=== PATIENT | male | born 1970 | race Caucasian/White ===

== ENCOUNTER 2017-09-15 14:51 | Inpatient (IN) | payer OTHER ==
[~2017-09-15] VITALS: Ht 177.8 cm; Wt 86.8 kg
--- NOTE | ~2017-09-15 | HEMODYNAMI ---
PATIENT:GABRIEL MAYO MEDICAL RECORD: [id number] : 68 LOCATION:[address] ADMISSION DATE: 09/15/17 Generatedon:09/19/20178:00 Patient name: GABRIEL MAYO Patient #: [id number] SSN: DO B: 1970 Date of study: 09/19/2017 Page: Of Hemodynamic Procedure Report Patient Data Patient Demographics Procedure consent was obtained First Name: GABRIEL Gender: Male Last Name: MARIA ESTHER : 1970 Patient #: [id number] Age: 46 year(s) Race: Unknown Additional ID: [id number] Contact details Address: [address] [place] [address] State: [place] City: [place] Zip code: [address] Past Medical History Allergies: No known allergies Admission Admission Data Admission Date: 09/15/2017 Admission Time: 15:01 Room #: [facility] Procedure Procedure Types Cath Procedure Diagnostic Procedure LHC LHC w/Coronaries Miscellaneous Procedures Moderate Sedation up to 15 minutes Procedure Description Procedure Date Procedure Date: 09/19/2017 Procedure Start Time: 7:48 Procedure End Time: 7:59 Procedure Staff Name Function Shahid Dominique MD Performing Physician Gayle Boyer RT Monitor Jesus Alberto Castle RT Scrub Benton Grant RN Nurse Procedure Data Cath Procedure Fluoroscopy Diagnostic fluoroscopy Total fluoroscopy Time: 0.8 time: 0.8 min min Diagnostic fluoroscopy Total fluoroscopy dose: 547 dose: 547 mGy mGy Contrast Material Contrast Material Type Amount (ml) Isovue 300 84 Entry Location Entry Primary Successful Side Size Upsize Upsize Entry Closure Succes sful Closure Location (Fr) 1 (Fr) 2 (Fr) Remarks Device Remarks Femoral Right 5 Fr Exoseal artery Estimated blood loss: 5 ml Diagnostic catheters Device Type Used For End Catheter Placement Cordis 5Fr Pigtail LV Angiography Catheter (MP) Cordis 5Fr JL 4.0 Left Coronary Catheter (MP) Angiography Cordis 5Fr 3DRC Catheter Right Coronary (MP) Angiography Procedure Complications No complications Procedure Medications Medication Administration Route Dosage Oxygen NC 2 l/min Heparin Flush Bag added to field 2 bags (1000units/500ml NS) 0.9% NaCl I.V. 100 ml/hr Fentanyl I.V. 50 mcg Versed I.V. 1 mg Fentanyl I.V. 50 mcg Versed I.V. 1 mg Hemodynamics Rest Heart Rate: 94 (bpm) Pressure Samples Time Site Value (mmHg) Purpose Heart Use Rate(bpm) 7:50 LV 116/4,19 Snapshot 94 Gradients Valve Time Site Site Mean SEP/DFP Peak To Heart Use 1 2 (mmHg) (sec/min) Peak Rate (mmHg) (bpm) Aortic 7:51 LV AO 93 Snapshots Pre Cath Intra NCS Post Cath Vital Signs Time Heart Resp SPO2 etCO2 NIBP Rhythm Pain Sedation Rate (ipm) (%) (mmHg) (mmHg) Status Level (bpm) 7:37:01 90 19 95 0 118/72(86) NSR 0 (11) 10(A) , No pain 7:41:44 93 20 93 0 115/72(92) NSR 0 (11) 10(A) , No pain 7:46:29 93 20 96 35.2 119/72(90) NSR 0 (11) 10(A) , No pain 7:51:16 95 22 95 27.7 116/63(91) NSR 0 (11) 9(A) , No pain 7:56:01 95 18 95 37.4 115/71(84) NSR 0 (11) 9(A) , No pain 7:57:18 95 22 94 37.4 122/74(86) NSR 0 (11) 9(A) , No pain Medications Time Medication Route Dose Verified Delivered Reason Notes Effect iveness by by 7:45:55 Oxygen NC 2 Shahid Bhardwaj Per l/min Trip Grant RN physician 7:46:05 Heparin Flush added 2 Shahid Bhardwaj used for Bag to bags Trip Grant laborer [employer] (1000units/500ml field NS) 7:46:15 0.9% NaCl I.V. 100 Shahid Bhardwaj Per ml/hr Trip Grant RN physician 7:48:36 Fentanyl I.V. 50 Shahid Bhardwaj for mcg Trip Grant RN sedation 7:48:43 Versed I.V. 1 mg Shahid Bhardwaj for Trip Grant RN sedation 7:52:11 Fentanyl I.V. 50 Shahid [place]hardwaj [place] [facility] [place] sedation 7:52:16 Versed I.V. 1 mg Shahid Bhardwaj for Trip Grant RN sedation Procedure Log Time Note 7:12:56 Jesus Alberto Castle RT(R) sent for patient. Start room use. 7:27:57 Time tracking: Call back 7:28:07 Plan of Care:Hemodynamics will remain stable., Cardiac rhythm will remain stable., Comfort level will be maintained., Respiratory function will remain adequate., Patient/ family verbilizes understanding of procedure., Procedure tolerated without complication., Recovers from procedure without complications.. 7:31:45 Patient received from PCU to CCL 1 Alert and oriented. Tansferred to table in Supine position. 7:31:47 Warm blankets applied, and shaquille hugger turned on for patient comfort. 7:31:47 Correct patient and procedure confirmed by team. 7:31:48 Signed procedure consent form obtained from patient. 7:31:50 ECG and BP/O2 sat monitors applied to patient. 7:31:52 Full Disclosure recording started 7:36:07 Vital chart was started 7:40:39 Baseline sample Acquired. 7:40:42 Rhythm: sinus rhythm 7:41:30 H&P Date Dictated: 09/15/2017 Within 30 days and on chart.. 7:41:32 Pre-procedure instructions explained to patient. 7:41:32 Pre-op teaching completed and patient verbalized understanding. 7:41:35 Family in patients room. 7:41:37 Patient NPO since Midnight. 7:41:46 Patient allergic to No known allergies 7:41:49 Is the patient allergic to Iodine/contrast media? No. 7:41:51 Is patient on blood thinner?No 7:41:53 Patient diabetic? No. 7:41:57 Previous problem with sedation/anesthesia? No ? 7:41:57 Snore? No 7:41:59 Sleep apnea? No 7:42:00 Deviated septum? No 7:42:01 Opens mouth fully? Yes 7:42:02 Sticks out tongue? Yes 7:42:03 Airway obstruction? No ? 7:42:05 Dentures? No ? 7:42:07 Pre procedure: right dorsailis pedis pulse 2+ Normal; easily identifiable; not easily obliterated 7:42:10 Patient pain scale 0/10 ?. 7:43:07 IV patent on arrival in right forearm with 0.9% NaCl at [facility]. 7:43:10 Lab results completed and on chart. 7:43:13 Right groin area was prepped with chlora-prep and draped in sterile fashion 7:43:14 Alarms reviewed by R. N. 7:43:14 Sharps counted by scrub and verified by R.N. 7:43:17 Use device set Femoral Dx 7:43:18 Acist Syringe opened to sterile field. 7:43:18 Bag Decanter opened to sterile field. 7:43:18 Medline Cath Pack opened to sterile field. 7:43:19 Terumo 5Fr [place] Sheath opened to sterile field. 7:43:20 St Jamie 260cm J .035 wire opened to sterile field. 7:43:20 Acist Hand Control opened to sterile field. 7:43:21 Acist Manifold opened to sterile field. 7:43:21 Diagnostic Infinity 5Fr Multipack catheter opened to sterile field. 7:43:22 Tegaderm 4 x 4 opened to sterile field. 7:44:39 Physician paged 7:45:55 Oxygen 2 l/min NC was administered by Benton Grant RN; Per physician; 7:46:05 Heparin Flush Bag (1000units/500ml NS) 2 bags added to field was administered by Benton Grant RN; used for procedure; 7:46:15 0.9% NaCl 100 ml/hr I.V. was administered by Benton Grant RN; Per physician; 7:47:40 Final Timeout: patient, procedure, and site verified with staff and physician. All members of the team are in agreement. 7:47:41 Right groin site verified by team. 7:47:45 Physical assessment completed. ASA score P 2 - A patient with mild systemic disease as per Shahid Dominique MD. 7:47:49 Sedation plan: IV Moderate Sedation Medication:Versed, Fentanyl 7:47:54 Procedure started. 7:48:36 Fentanyl 50 mcg I.V. was administered by Benton Grant RN; for sedation; 7:48:43 Versed 1 mg I.V. was administered by Benton Grant RN; for sedation; 7:48:47 Local anesthetic to right femoral artery with Lidocaine 2% by Shahid Dominique MD.INITIAL ACCESS ONLY 7:48:56 Zero performed for pressure channel P1 7:49:15 A 5 Fr sheath was inserted into the Right Femoral artery 7:50:17 A Cordis 5Fr Pigtail Catheter (MP) was advanced over the wire and used for LV Angiography. 7:50:53 LV gram done using REILLY 7:51:34 Injector settings: Ml/sec: 10, Volume: 20, 7:51:37 LV hemodynamics recorded. 7:51:41 Catheter removed. 7:52:11 Fentanyl 50 mcg I.V. was administered by Benton Grant RN; for sedation; 7:52:16 Versed 1 mg I.V. was administered by Benton Grant RN; for sedation; 7:52:55 A Cordis 5Fr JL 4.0 Catheter (MP) was advanced over the wire and used for Left Coronary Angiography. 7:52:56 Catheter removed. 7:53:20 A Cordis 5Fr 3DRC Catheter (MP) was advanced over the wire and used for Right Coronary Angiography. 7:53:52 Catheter removed. 7:54:03 Cordis 5Fr Exoseal opened to sterile field. 7:55:36 Procedure ended.(Physican Out) 7:57:35 Sheath removed intact; hemostasis achieved with Exoseal to the Right Femoral artery. 7:57:52 Fluoroscopy time 00.80 minutes. 7:57:56 Fluoroscopy dose: 547 mGy 7:57:56 Flurop Dose total: 547 7:58:03 Contrast amount:Isovue 300 84ml. 7:58:04 Sharps counted by scrub and verified by R.N. 7:58:07 Insertion/operative site no bleeding no hematoma. 7:58:14 Post-op/insertion site Right Femoral artery dressed using a 4 x 4 and Tegaderm. 7:58:18 Post right femoral artery:stable, clean and dry 7:58:21 Post Procedure Pulses reassessed and unchanged 7:58:34 Post-procedure physical assessment completed. ASA score P 2 - A patient with mild systemic disease as per Shahid Dominique MD. 7:58:40 Post procedure rhythm: unchanged. 7:58:43 Estimated blood loss: 5 ml 7:58:46 Post procedure instruction explained to patient.Patient verbalizes understanding. 7:58:46 Patient needs reinforcement of post procedure teaching. 7:58:58 Procedure type changed to Cath procedure, Diagnostic procedure, LHC, LHC w/Coronaries, Miscellaneous Procedures, Moderate Sedation up to 15 minutes 7:59:03 Procedure Complication : No complications 7:59:06 See physician's report for complete and final results. 7:59:19 Procedure and supply charges have been captured, reviewed, submitted and are correct. 7:59:28 Vital chart was stopped 7:59:31 Report given to PCU. 7:59:35 Patient transfered to PCU with Bed. 7:59:45 Procedure ended. 7:59:45 Full Disclosure recording stopped 7:59:50 End room use (Document Last) Device Usage Item Name Manufacture Quantity Catalog Hospital Part Current Minimal Lo t# / Number Charge Number Stock Stock Serial# Code Acist Acist 1 [id number] [id number] [id number] 20 Syringe Medical Systems Inc Bag Microtek 1 2002S [id number] 86872 441929 5 Decanter Medical Inc. Medline Cardinal 1 [id number] 336829 95850 922780 5 Cath Pack Health Terumo 5Fr Terumo 1 [id number] 141891 087986 875684 [address] Jamie 1 022142 845771 137614 916072 30 260cm J .035 wire Acist Hand Acist 1 55653 505389 933144 992446 5 Control Medical Systems Inc Acist Acist 1 24731 706129 367058 256746 5 Manifold Medical Systems Inc Diagnostic Cardinal 1 [id number] 253630 70026 230075 30 Infinity Health 5Fr Multipack catheter Tegaderm 4 3M 1 1626W 889887 719842 795696 5 x 4 Cordis 5Fr Cardinal 1 [id number] 5 Pigtail Health Catheter (MP) Cordis 5Fr Cardinal 1 [id number] 5 JL 4.0 Health Catheter (MP) Cordis 5Fr Cardinal 1 290969 5 3DRC Health Catheter (MP) Cordis 5Fr Cardinal 1 EX500 001235 773529 542283 10 Vocalytics Signature Audit [place] Stage Time Signature Unsigned Intra-Procedure 09/19/2017 Gayle 8:00:00 AM Counts RT(R) Signatures Monitor : Gayle Signature : Counts RT Date : Time : [address] [place] [address]
--- NOTE | ~2017-09-15 | HEMODYNAMI ---
PATIENT:GABRIEL MAYO MEDICAL RECORD: [id number] : 68 LOCATION:[address] ADMISSION DATE: 09/15/17 Generatedon:09/22/201711:27 Patient name: GABRIEL MAYO Patient #: [id number] SSN: DO B: 1970 Date of study: 09/22/2017 Page: Of Hemodynamic Procedure Report Patient Data Patient Demographics Procedure consent was obtained First Name: GABRIEL Gender: Male Last Name: MARIA ESTHER : 1970 Patient #: [id number] Age: 46 year(s) Race: Unknown Additional ID: [id number] Contact details Address: [address] [place] [address] State: [place] City: [place] Zip code: [address] Past Medical History Allergies: No known allergies Admission Admission Data Admission Date: 09/15/2017 Admission Time: 15:01 Room #: [facility] Lab Results Lab Result Date: 09/22/2017 Lab Result Time: 0:00 Biochemistry Name Units Result Min Max BUN mg/dl 19 --(----)*- 7 18 Creatinine mg/dl 1.1 --(--*-)-- 0.6 1.3 CBC Name Units Result Min Max Hemoglobin g/dl 16 --(--*-)-- 13.5 17.5 Procedure Procedure Types Cath Procedure Diagnostic Procedure ALEX Procedure Description Procedure Date Procedure Date: 09/22/2017 Procedure Start Time: 11:10 Procedure End Time: 11:21 Procedure Staff Name Function Shahid Dominique MD Performing Physician Fernanda Cosme RT Monitor Serenity Alicea RT Scrub Louis Lord RN Nurse Blade Donaldson Button Riveter Alberto Reece MD Additional personnel Procedure Data Cath Procedure Fluoroscopy Diagnostic fluoroscopy Total fluoroscopy Time: 0 time: 0 min min Diagnostic fluoroscopy Total fluoroscopy dose: 0 dose: 0 mGy mGy Contrast Material Contrast Material Type Amount (ml) Isovue 300 0 Estimated blood loss: 0 ml Procedure Complications No complications Procedure Medications Medication Administration Route Dosage Oxygen NC 2 l/min Hurricaine Chester P.O. 1 Sprays Refer to Anesthesia Notes for Sedation Medications Hemodynamics Rest HGB: 16 (g/dl) Heart Rate: 85 (bpm) Snapshots Pre Cath Intra NCS Post Cath Vital Signs Time Heart Resp SPO2 NIBP Rhythm Pain Sedation Rate (ipm) (%) (mmHg) Status Level (bpm) 10:45:12 87 27 98 117/73(98) NSR 0 (11) 10(A) , No pain 10:49:26 84 29 97 124/75(92) NSR 0 (11) 10(A) , No pain 10:53:40 87 24 96 121/67(85) NSR 0 (11) 10(A) , No pain 10:57:50 86 34 98 119/70(85) NSR 0 (11) 10(A) , No pain 11:01:58 84 19 99 112/71(91) NSR 0 (11) 10(A) , No pain 11:06:06 85 22 100 114/69(84) NSR 0 (11) 10(A) , No pain 11:10:20 87 23 100 98/68(75) NSR 0 (11) 10(A) , No pain 11:14:23 95 20 98 117/75(87) NSR 0 (11) 9(A) , No pain 11:18:37 94 28 97 104/62(87) NSR 0 (11) 10(A) , No pain Medications Time Medication Route Dose Verified Delivered Reason Notes Effective ness by by 11:00:26 Oxygen NC 2 Shahid Myers used for l/min Trip Lord RN procedure 11:00:38 Hurricaine P.O. 1 Shahid Myers used for Chester Sprays Trip Lord RN procedure 11:00:43 Refer to Shahid Myers Anesthesia Trip Lord RN Notes for Sedation Medications Procedure Log Time Note 10:30:42 Fernanda SANDOVAL(R) sent for patient. Start room use. 10:43:47 Time tracking: Regular hours 10:43:51 Plan of Care:Hemodynamics will remain stable., Cardiac rhythm will remain stable., Comfort level will be maintained., Respiratory function will remain adequate., Patient/ family verbilizes understanding of procedure., Procedure tolerated without complication., Recovers from procedure without complications.. 10:44:01 Patient received from Med II to CCL 2 Alert and oriented. Tansferred to table in Supine position. 10:44:02 Warm blankets applied, and shaquille hugger turned on for patient comfort. 10:44:02 Correct patient and procedure confirmed by team. 10:44:03 Signed procedure consent form obtained from patient. 10:44:05 ECG and BP/O2 sat monitors applied to patient. 10:44:06 Vital chart was started 10:44:07 Baseline sample Acquired. 10:44:10 Rhythm: sinus rhythm 10:44:20 Full Disclosure recording started 10:44:27 H&P Date Dictated: 09/22/2017 New H&P dictated by physician.. 10:44:28 Pre-procedure instructions explained to patient. 10:44:29 Pre-op teaching completed and patient verbalized understanding. 10:44:31 Family in waiting room. 10:44:33 Patient NPO since Midnight. 10:45:56 Is the patient allergic to Iodine/contrast media? No. 10:45:57 Was the patient premedicated? No 10:51:20 Is patient on blood thinner?No 10:51:21 Patient diabetic? No. 10:51:26 Previous problem with sedation/anesthesia? No ? 10:51:27 Snore? Yes 10:51:28 Sleep apnea? No 10:51:29 Deviated septum? No 10:51:30 Opens mouth fully? Yes 10:51:31 Sticks out tongue? Yes 10:51:33 Airway obstruction? No ? 10:51:36 Dentures? No ? 10:51:42 Pre procedure: right dorsailis pedis pulse 2+ Normal; easily identifiable; not easily obliterated 10:51:45 Pre procedure: left dorsailis pedis pulse 2+ Normal; easily identifiable; not easily obliterated 10:51:49 Patient pain scale 0/10 ?. 10:52:01 IV patent on arrival in right hand with 0.9% NaCl at [facility]. 10:54:08 Lab Result : BUN 19 mg/dl 10:54:08 Lab Result : Creatinine 1.1 mg/dl 10:54:08 Lab Result : Hemoglobin 16 g/dl 10:55:37 Lab results completed and on chart. 10:55:41 Sharps counted by scrub and verified by R.N. 10:55:43 Physician paged 10:59:09 Blade Donaldson Power Cleaner Operator present for ALEX. 11:00:26 Oxygen 2 l/min NC was administered by Louis Lord RN; used for procedure; 11:00:38 Hurricaine Chester 1 Sprays P.O. was administered by Louis Lord RN; used for procedure; 11:00:43 Refer to Anesthesia Notes for Sedation Medications was administered by Louis Lord RN; ; 11:06:30 Physician arrived :: --------ALL STOP TIME OUT------ :31 Final Timeout: patient, procedure, and site verified with staff and physician. All members of the team are in agreement. 11:06:36 Physical assessment completed. ASA score P 2 - A patient with mild systemic disease as per Shahid Dominique MD. 11:06:39 Sedation plan: TIVA Medication:Propofol 11:06:44 Alberto Reece MD present and monitoring patient for TIVA. 11:10:27 ALEX started. 11:10:35 Procedure started. 11:19:26 ALEX completed. 11:19:43 Procedure ended.(Physican Out) 11:19:47 Fluoroscopy time 00.00 minutes. 11:19:49 Fluoroscopy dose: 0 mGy 11:19:49 Flurop Dose total: 0 11:19:56 Contrast amount:Isovue 300 0ml. 11:19:58 Sharps counted by scrub and verified by R.N. 11:19:59 Insertion/operative site no bleeding no hematoma. 11:20:11 Post Procedure Pulses reassessed and unchanged 11:20:20 Post procedure rhythm: unchanged. 11:20:28 Estimated blood loss: 0 ml 11:20:29 Post procedure instruction explained to patient.Patient verbalizes understanding. 11:20:30 Patient needs reinforcement of post procedure teaching. 11:20:36 Procedure and supply charges have been captured, reviewed, submitted and are correct. 11:20:40 Procedure Complication : No complications 11:20:44 Vital chart was stopped 11:20:45 See physician's report for complete and final results. 11:20:53 Report given to [facility] II. 11:20:56 Patient transfered to Med II with Stretcher. 11:21:09 Procedure ended. 11:21:09 Full Disclosure recording stopped 11:21:14 End room use (Document Last) Signature Audit [place] Stage Time Signature Unsigned Intra-Procedure 09/22/2017 Serenity Alicea 11:27:04 AM RT(R) Signatures Monitor : Fernanda Cosme Signature : RT Date : Time : [place] [id number] [facility] [place] [address]
[2017-09-15] MEDS ORDERED: MOBIC7.5 MG PO (15:27)
[2017-09-15 15:28] VITALS: BP 128/73; BMI 28.0
[2017-09-15] MEDS ORDERED: TESTOSTERON200 MG/ML IM (15:28)
[2017-09-15 15:39] LABS: BASOPHILS 0.1 % (0-2); EOSINOPHILS 0.4 % (0-7); HEMATOCRIT 49.3 % (42.0-54.0); IMMATURE GRANULOCYTES 0.2 % (0-5); LYMPHOCYTES 10.7 % (15-50); MCH 31.7 pg (26.0-34.0); MCHC 34.5 g/dL (31.0-37.0); MCV 91.8 fL (80.0-100.0); MEAN PLATELET VOLUME 10.3 fL (7.4-10.4); MONOCYTES 10.7 % (2-11); NEUTROPHILS 77.9 % (40-80); PLATELET COUNT 223 10x3/uL (130-400); RBC 5.37 10x6/uL (4.20-6.10); RDW 13.1 % (11.5-14.5); WBC 11.2 10x3/uL (4.8-10.8)
[2017-09-15 15:54] LABS: CALC OSMOLALITY 287 mosm/kg (275-300); CALCIUM 8.4 mg/dL (8.5-10.1); CARBON DIOXIDE 25.4 mmol/L (21.0-32.0); CHLORIDE - SERUM 108 mmol/L (98-107); GLUCOSE 86 mg/dL (74-106); POTASSIUM - SERUM 3.6 mmol/L (3.5-5.1); SODIUM 144 mmol/L (136-145); UREA NITROGEN 19 mg/dL (7-18); eGFR NON AFRICAN AMERICAN 85 mL/min (90-120)
--- NOTE | 2017-09-15 16:00 | NUR ---
PT ARRIVED TO UNIT WITH AT BEDSIDE. PT A&O AMBULATORY PT DIRECT ADMIT FROM LEDGER CLERK APPT WITH ENDOCARDITIS. 20 GUAGE PIV INSERTED X1 STICK TO L.FA, MADELINEG CDI AND SWAB CAPS IN USE. WILL BEGIN ADMISSION WORK-UP AND CONTINUE WITH ORDERS.
--- NOTE | 2017-09-15 16:43 | NUR ---
ALL ANBX ON HOLD UNTIL AFTER ALL RANDOM BLOOD CULTURES ARE COMPLETED. AT BEDSIDE NOW ASSESSING PT AND DISCUSSING DISEASE PROCESS. FAMILY AT BEDSIDE. NO CURRENT NEEDS. WILL CPOC.
--- NOTE | 2017-09-15 18:21 | NUR ---
URINE SPECIMEN COLLECTED AND WILL BE SENT TO LAB.
--- NOTE | 2017-09-15 20:25 | NUR ---
PT AWAKE, ALERT, ORIENTED, ASKING FOR IBUPROFEN R/T A HEADACHE, NO OTHER NEEDS. IS AT BEDSIDE. CONTINUE TO MONITOR CLOSELY. BED LOW, CALL LIGHT IN REACH, SIDE RAILS X 2, HOB 35-40 DEGREES. PT STATES HE DOES EXPERIENCE INCREASED SOB WHEN LYING DOWN.
[2017-09-15 20:55] VITALS: BP 123/78
--- NOTE | 2017-09-16 00:27 | NUR ---
PT ORIGINALLY DID NOT WANT THE PRN AMBIEN SO I RETURNED THE ORIGINAL DOSE. AFTER A COUPLE OF HOURS, PT WAS COUGHING FREQUENTLY AND UNABLE TO SLEEP, SO HE DID WANT THE AMBIEN. WILL CONTINUE TO MONITOR CLOSELY.
[2017-09-16 00:45] VITALS: BP 115/74
[2017-09-16 05:39] LABS: BASOPHILS 0.1 % (0-2); EOSINOPHILS 1.1 % (0-7); HEMATOCRIT 50.5 % (42.0-54.0); IMMATURE GRANULOCYTES 0.3 % (0-5); LYMPHOCYTES 16.9 % (15-50); MCH 31.1 pg (26.0-34.0); MCHC 33.7 g/dL (31.0-37.0); MCV 92.3 fL (80.0-100.0); MEAN PLATELET VOLUME 11.2 fL (7.4-10.4); NEUTROPHILS 71.6 % (40-80); PLATELET COUNT 221 10x3/uL (130-400); RBC 5.47 10x6/uL (4.20-6.10); RDW 13.1 % (11.5-14.5)
[2017-09-16 05:44] LABS: WBC 7.9 10x3/uL (4.8-10.8)
[2017-09-16 05:50] LABS: CALC OSMOLALITY 285 mosm/kg (275-300); CALCIUM 8.7 mg/dL (8.5-10.1); CARBON DIOXIDE 28.2 mmol/L (21.0-32.0); CHLORIDE - SERUM 106 mmol/L (98-107); CREATININE - SERUM 1.1 mg/dL (0.6-1.3); GLUCOSE 104 mg/dL (74-106); POTASSIUM - SERUM 3.7 mmol/L (3.5-5.1); SODIUM 142 mmol/L (136-145); UREA NITROGEN 21 mg/dL (7-18); eGFR NON AFRICAN AMERICAN 76 mL/min (90-120)
--- NOTE | 2017-09-16 06:06 | NUR ---
PT AWAKE, ALERT, ORIENTED, LYING IN BED LOOKING AT TELEVISION. PT DENIES ANY NEEDS. PT HAS BEEN COUGHING FREQUENTLY THIS SHIFT. I HAVE ENCOURAGED PT TO TALK TO PHYSICIAN ABOUT GETTING SOMETHING TO HELP HIS COUGH SO HE CAN REST. CONTINUE TO MONITOR PT CLOSELY. BED LOW, CALL LIGHT IN REACH, SIDE RAILS X 2, HOB 35 DEGREES.
[2017-09-16 06:12] VITALS: BP 110/66
[2017-09-16 07:47] VITALS: BP 126/79
[2017-09-16 11:48] VITALS: BP 129/82
--- NOTE | 2017-09-16 15:45 | NUR ---
RESTING IN BED. ALERT AND ORIENTED X4. FAMILY AT BEDSIDE. DENIES ANY NEEDS. NO CHANGE. SINUS RTHYM 90bpm ON TELEMETRY. CONTINUE PLAN OF CARE. BED LOCKED AND LOW. CALL LIGHT IN REACH. NO SIDERAILS UP PER PATIENT REQUEST.
[2017-09-16 16:09] VITALS: BP 99/53
--- NOTE | 2017-09-16 19:46 | NUR ---
RESUMED CARE OF PT, LYING IN BED RESPIRATIONS EVEN AND UNLABORED ON ROOM AIR. LEFT FOREARM INFUSING VANCOMYCIN @ 100. 86 SR ON TELEMETRY. CALL LIGHT INR EACH. SEE NURSE ASSESSMENT. WILL CONTINUE TO MONITOR.
--- NOTE | 2017-09-16 20:36 | NUR ---
NIGHT MEDS PASSED, SPUTUM CUP AT BEDSIDE AND INSTRUCTIONS FOR COLLECTION GIVEN.
[2017-09-16 21:12] VITALS: BP 103/64
--- NOTE | 2017-09-16 23:46 | NUR ---
SPUTUM CULTURE COLLECTED, NO NEEDS AT THIS TIME. WILL CONTINUE TO MONITOR. CALL LIGHT IN REACH.
[2017-09-17 00:52] VITALS: BP 106/61
--- NOTE | 2017-09-17 05:24 | NUR ---
REPEAT PHOTOCOMPOSING MACHINE OPERATOR AT BEDSIDE TO OBTAIN VITALS, CALL LIGHT IN REACH. WILL CONTINUE WITH PLAN OF CARE.
[2017-09-17 05:53] VITALS: BP 114/72
[2017-09-17 06:41] LABS: ALBUMIN 2.9 g/dL (3.4-5.0); BILIRUBIN - DIRECT 0.05 mg/dL (0.00-0.30); BILIRUBIN - INDIRECT 0.35 mg/dL (0.00-1.00); BILIRUBIN - TOTAL 0.4 mg/dL (0.2-1.3)
--- NOTE | 2017-09-17 07:30 | NUR ---
RECEIVED PT IN BED AAOX4 RESP UNLABORED DENIES ANY NEEDS OR DISCOMFORT NAD NOTED
[2017-09-17 08:00] VITALS: BP 119/63
--- NOTE | 2017-09-17 10:32 | NUR ---
RESTING QUIETLY RECLINED IN CHAIR NAD NOTED
[2017-09-17 13:20] VITALS: BP 116/72
--- NOTE | 2017-09-17 15:34 | NUR ---
VISITING WITH FRIENDS MAMIE NOTED
[2017-09-17 16:47] VITALS: BP 104/50
--- NOTE | 2017-09-17 20:09 | NUR ---
PT AWAKE, ALERT, ORIENTED, DENIES ANY NEEDS AT THIS TIME. FAMILY AT BEDSIDE. CONTINUE TO MONITOR CLOSELY.
[2017-09-17 20:35] VITALS: BP 118/67
[2017-09-18 00:50] VITALS: BP 106/60
[2017-09-18 05:12] VITALS: BP 104/62
[2017-09-18 11:48] VITALS: BP 112/65
--- NOTE | 2017-09-18 15:53 | NUR ---
Vancomycin trough was 8.2. Increased to 1gm q8h & ordered trough 11-26 at 0730.
[2017-09-18 16:15] VITALS: BP 107/63
--- NOTE | 2017-09-18 19:26 | NUR ---
PT AWAKE, ALERT, ORIENTED, WALKING AROUND UNIT, DID BECOME WINDED AND HAD TO SIT DOWN. NO NEEDS AT THIS TIME. WILL CONTINUE TO MONITOR CLOSELY. BED LOW, CALL LIGHT IN REACH. PT IS CURRENTLY SITTING UP IN CHAIR.
[2017-09-18 21:40] VITALS: BP 113/75
[2017-09-19] VITALS: BP 106/62
--- NOTE | 2017-09-19 00:57 | NUR ---
PT RESTING COMFORTABLY, STILL COUGHING, NO NEEDS. REMAINS AT BEDSIDE. CONTINUE TO MONITOR CLOSELY.
[2017-09-19 04:16] VITALS: BP 107/64
[2017-09-19 05:08] LABS: IMMUNOGLOBULIN E 102 IU/mL (0-100)
[2017-09-19 05:16] LABS: BASOPHILS 0.1 % (0-2); EOSINOPHILS 2.3 % (0-7); IMMATURE GRANULOCYTES 0.4 % (0-5); LYMPHOCYTES 20.5 % (15-50); MCH 30.8 pg (26.0-34.0); MCHC 33.3 g/dL (31.0-37.0); MCV 92.4 fL (80.0-100.0); MEAN PLATELET VOLUME 10.8 fL (7.4-10.4); MONOCYTES 7.9 % (2-11); NEUTROPHILS 68.8 % (40-80); PLATELET COUNT 196 10x3/uL (130-400); RBC 4.87 10x6/uL (4.20-6.10); RDW 13.1 % (11.5-14.5); WBC 7.8 10x3/uL (4.8-10.8)
[2017-09-19 05:50] LABS: CALC OSMOLALITY 283 mosm/kg (275-300); CALCIUM 8.5 mg/dL (8.5-10.1); CARBON DIOXIDE 26.3 mmol/L (21.0-32.0); CHLORIDE - SERUM 107 mmol/L (98-107); GLUCOSE 98 mg/dL (74-106); POTASSIUM - SERUM 4.2 mmol/L (3.5-5.1); SODIUM 141 mmol/L (136-145); UREA NITROGEN 22 mg/dL (7-18); eGFR NON AFRICAN AMERICAN 85 mL/min (90-120)
--- NOTE | 2017-09-19 05:55 | NUR ---
DR. RAYMUNDO CALLED TO PLACE PT NPO, STATES HE WILL HAVE A CARDIAC CATH THIS MORNING. WILL OBTAIN CONSENTS.
--- NOTE | 2017-09-19 06:16 | NUR ---
CONSENTS FOR CARDIAC CATH SIGNED AND IN CHART.
--- NOTE | 2017-09-19 07:25 | NUR ---
AM ROUNDS COMPLETED. INTRODUCED MYSELF TO PT PRIMARY RN FOR TODAYS SHIFT. PT A&O SITTING UP IN BEDSIDE CHAIR. NIGHTSHIFT NURSE PREPPING PT FOR PATROL DEPUTY SHERIFF. PT ABOUT TO LEAVE. NO CURRENT NEEDS WILL GIVE MEDICATIONS WHEN HE RETURNS.
--- NOTE | 2017-09-19 08:15 | NUR ---
PT BACK FROM [facility]. LYING FLAT IN BED NEW DRSG TO R.GROIN. DRSG CDI NO S/S OF BLEEDING OR HEMATOMA NOTED. PERIPHERAL PULSES INTACT. VSS AND BEING MONITERED [id number] PER POST PROCEDURE PROTOCOL. PT DENIES ANY CURRENT PAIN OR NEEDS AT THIS TIME. AND FAMILY AT BEDSIDE. WILL CTM.
[2017-09-19 08:35] VITALS: BP 117/69
--- NOTE | 2017-09-19 09:22 | NUR ---
PT STILL LYING FLAT AND R.GROIN DRSG CDI. NO S/S OF BLEEDING OR HEMATOMA NOTED. VSS AND STILL BEING MONITERED. PERIPHERAL PULSES INTACT. WILL CTM.
--- NOTE | 2017-09-19 10:11 | NUR ---
PTS 2 HOUR LAY COMPLETED. ASSISTED PT TO BR AND HE AMBULATED WITHOUT ANY DIFFICULTIES. VSS THROUGHOUT POST PROCEDURE RECORD. R.GROIN REMAINS CLEAN/DRY WITHOUT S/S OF HEMATOMA NOTED. PERIPHERAL PULSES INTACT. PT DENIES ANY CURRENT PAIN OR NEEDS. AT BEDSIDE. WILL CPOC.
[2017-09-19 12:12] VITALS: BP 100/50
--- NOTE | 2017-09-19 14:26 | NUR ---
CALLED XRAY TO INQUIRE ABOUT CHEST XRAY NOT DONE R/T PT BEING IN CATH THIS AM AND THEY STATE THEY WILL COME DO IT SHORTLY.
--- NOTE | 2017-09-19 15:21 | NUR ---
PROVIDED PT WITH INCENTIVE SPIROMETER AND TEACHING PROVIDED. PT DEMONSTRATED PROPER USE AND STATES HE WILL TRY AND DO IT SEVERAL TIMES EACH HOUR TO HELP IMPROVE LUNG FUNCTION. NO FURTHER NEEDS AT THIS TIME. WILL CPOC.
[2017-09-19 16:36] VITALS: BP 122/69
--- NOTE | 2017-09-19 17:07 | NUR ---
INITIATED PTS IVPB VANCOMYCIN INFUSING VIA L.FA PIV WITH DRSG CDI AND SWAB CAPS IN USE. PT SITTING UP IN BEDSIDE CHAIR RESTING WITH AT BEDSIDE. PT DENIES ANY CURRENT PAIN OR NEEDS AT THIS TIME. WILL CPOC.
--- NOTE | 2017-09-19 19:00 | NUR ---
RECEIVED REPORT AND ASSUMED PT CARE FROM DAY SHIFT NURSE @ THIS TIME.
--- NOTE | 2017-09-19 20:29 | NUR ---
PT SITTING UP IN BED, SPOUSE AT THE BEDSIDE. INITIAL ASSESSMENT COMPLETED, VSS, AFEBRILE. RESP EVEN UNLABORED. RT GROIN POST CATH SITE WITH MADELINEG, CDI. DENIES ANY C/O PAIN. PEDAL PULSES P/E +2. LEFT FOREARM WITH NS @ KVO, SIOTE IS PATENT AND APPEARS WNL. NO NEEDS VOICED. ON TELE, NSR, HR 93. CALL LIGHT WITHIN REACH. WILL CONT TO MONITOR.
[2017-09-19 21:15] VITALS: BP 136/60
--- NOTE | 2017-09-20 | NUR ---
PT RESTING WELL, NO CHANGES NOTED. ASSESSMENTS UNCHANGED. CALL LIGHT WITHIN REACH. WILL MONITOR.
[2017-09-20 00:50] VITALS: BP 100/46
[2017-09-20 05:16] VITALS: BP 110/60
--- NOTE | 2017-09-20 07:32 | NUR ---
AM ROUNDS COMPLETED. INTRODUCED MYSELF TO PT PRIMARY RN FOR TODAYS SHIFT. PT REMEMBERS ME FROM YESTERDAY. PT STATES THEY SLEPT ALRIGHT AND DENIES ANY CURRENT PAIN OR NEEDS. WILL CHECK CHART AND CPOC.
[2017-09-20 07:33] LABS: BASOPHILS 0.1 % (0-2); EOSINOPHILS 1.8 % (0-7); HEMATOCRIT 49.4 % (42.0-54.0); HEMOGLOBIN 16.7 g/dL (13.5-17.5); IMMATURE GRANULOCYTES 0.3 % (0-5); LYMPHOCYTES 17.1 % (15-50); MCH 31.2 pg (26.0-34.0); MCHC 33.8 g/dL (31.0-37.0); MCV 92.3 fL (80.0-100.0); MEAN PLATELET VOLUME 10.4 fL (7.4-10.4); MONOCYTES 9.5 % (2-11); NEUTROPHILS 71.2 % (40-80); PLATELET COUNT 208 10x3/uL (130-400); RBC 5.35 10x6/uL (4.20-6.10); RDW 13.2 % (11.5-14.5); WBC 7.4 10x3/uL (4.8-10.8)
[2017-09-20 07:46] LABS: CALC OSMOLALITY 283 mosm/kg (275-300); CALCIUM 8.4 mg/dL (8.5-10.1); CARBON DIOXIDE 28.7 mmol/L (21.0-32.0); CHLORIDE - SERUM 105 mmol/L (98-107); CREATININE - SERUM 1.1 mg/dL (0.6-1.3); GLUCOSE 95 mg/dL (74-106); POTASSIUM - SERUM 3.8 mmol/L (3.5-5.1); SODIUM 142 mmol/L (136-145); VANCOMYCIN - TROUGH 15.4 ug/mL (10.0-20.0); eGFR NON AFRICAN AMERICAN 76 mL/min (90-120)
[2017-09-20 07:52] LABS: UREA NITROGEN 15 mg/dL (7-18)
[2017-09-20 08:50] VITALS: BP 121/68
--- NOTE | 2017-09-20 10:20 | NUR ---
PTS VANCOMYCIN INFUSION COMPLETED. SL PTS L.FA PIV AND WRAPPED IT SO HE CAN TAKE A SHOWER. PT VOICED THANKS AND DENIES ANY FURTHER NEEDS AT THIS TIME. CL IN REACH. WILL CPOC.
--- NOTE | 2017-09-20 12:02 | NUR ---
AT BEDSIDE DISCUSSING YESTERDAYS CATH WITH PT AND . PT WILL BE NPO AFTER MIDNIGHT FOR ALEX TOMORROW AND HE VERBALIZED UNDERSTANDING. PT HAS AMBULATED 2 LAPS TODAY AROUND NURSES STATION AND IS FEELING GOOD OVERALL HE STATES. NO CURRENT NEEDS. WILL CPOC.
[2017-09-20 12:20] VITALS: BP 112/71
--- NOTE | 2017-09-20 15:21 | NUR ---
INITIATED PTS IVPB VANCOMYCIN INFUSING VIA L.FA PIV WITH DRSG CDI AND SWAB CAPS IN USE. PT REQUESTED THIS A LITTLE EARLY R/T HIS SON COMING TO VISIT LATER AND HE WOULD LIKE FOR IT TO BE DONE AND DISCONNECTED. NO ISSUES WITH THIS REQUEST. WILL CPOC.
[2017-09-20 16:39] VITALS: BP 134/73
[2017-09-20 20:00] VITALS: BP 126/66
[2017-09-21] VITALS: BP 99/55
[2017-09-21 04:00] VITALS: BP 109/56
[2017-09-21 05:50] LABS: BASOPHILS 0.1 % (0-2); HEMATOCRIT 47.3 % (42.0-54.0); HEMOGLOBIN 15.5 g/dL (13.5-17.5); IMMATURE GRANULOCYTES 0.3 % (0-5); LYMPHOCYTES 14.8 % (15-50); MCH 30.5 pg (26.0-34.0); MCHC 32.8 g/dL (31.0-37.0); MCV 93.1 fL (80.0-100.0); MEAN PLATELET VOLUME 10.8 fL (7.4-10.4); MONOCYTES 9.1 % (2-11); NEUTROPHILS 73.7 % (40-80); PLATELET COUNT 202 10x3/uL (130-400); RBC 5.08 10x6/uL (4.20-6.10); RDW 13.2 % (11.5-14.5); WBC 7.9 10x3/uL (4.8-10.8)
[2017-09-21 06:18] LABS: CALC OSMOLALITY 288 mosm/kg (275-300); CALCIUM 8.8 mg/dL (8.5-10.1); CARBON DIOXIDE 28.2 mmol/L (21.0-32.0); CHLORIDE - SERUM 108 mmol/L (98-107); CREATININE - SERUM 1.1 mg/dL (0.6-1.3); GLUCOSE 102 mg/dL (74-106); POTASSIUM - SERUM 3.8 mmol/L (3.5-5.1); SODIUM 144 mmol/L (136-145); eGFR NON AFRICAN AMERICAN 76 mL/min (90-120)
[2017-09-21 06:23] LABS: UREA NITROGEN 19 mg/dL (7-18)
--- NOTE | 2017-09-21 07:30 | NUR ---
RECEIVED PT IN BED AAOX4 RESP UNLABORED SALINE LOCK INFILTRATED SLIGHT REDNESS AND EDEMA NOTED TO LFA SITE IV DCD WITH IV CATHETER INTACT TYLER RESITE SALINE LOCK SHORTLY
[2017-09-21 08:27] VITALS: BP 119/73
--- NOTE | 2017-09-21 09:02 | EC ---
PATIENT:GABIREL MAYO DATE OF SERVICE: 09/15/17 SEX: M MEDICAL RECORD: [id number] DATE OF : [birth year] LOCATION:D. D.211 AGE OF PATIENT: 46 ADMISSION DATE: 09/15/17 REFERRING PHYSICIAN: INTERPRETING PHYSICIAN: FRANCIS RAYMUNDO MD ECHOCARDIOGRAM REPORT ECHO CHARGES CLINICAL DIAGNOSIS: ECHOCARDIOGRAPHIC MEASUREMENTS (adult normal given) AC root (d.<3.7cm) cm LV Septum d (<1.2 cm> cm Valve Excursion cm LV Septum (systole) cm Left Atria (s.<4.0cm> cm LVPW d(<1.2cm) cm RV (d.<2.3cm) cm LVPW (sytole) cm LV diastole(<5.6CM) cm MV E-F(>70mm/sec) cm LV systole cm LVOT Diameter cm MV exc.(>10mm) cm Est.ejection fraction (50-75%) % Pericardial Effusion DOPPLER: LVIT cm/sec A cm/sec E cm/sec LA cm/sec RVSP mmHg LVOT cm/sec AOP1/2T m/s Asc. Ao cm/sec RVOT cm/sec RA cm/sec PA cm/sec AV Gradient Peak mmHg AV Mean mmHg AV Area cm MV Gradient Peak mmHg MV Mean mmHg MV Area cm COMMENTS: Automotive Product Specialist: Mission Coordinator: ELLY DATE OF SERVICE: 09/16/2017 PROCEDURE: Echocardiogram. FINDINGS: 1. Left ventricular chamber size is mildly dilated. Left ventricular systolic function is preserved. Overall ejection fraction estimated at 60%. 2. Left atrium is enlarged at 5.0 cm. Right atrium and right ventricular chamber sizes are as well mildly dilated. 3. Valvular structures: Aortic valve demonstrates moderate to severe calcific ECHOCARDIOGRAM REPORT [id number] GABRIEL MAYO aortic stenosis, valve area calculates to 0.7 cm-squared, is a gradient of 81 mm across the valve. The mitral valve has an echogenic structure on the posterior leaflet. This is possibly compatible with endocarditis as well there is prolapse of the posterior mitral valve leaflet. 4. Doppler interrogation else jordan reveals severe mitral regurgitation, mild tricuspid regurgitation, no other valvular insufficiency or stenosis. Pulmonary systolic pressure is preserved at 37 mmHg. 5. No evidence of pericardial effusion or left ventricular thrombus. TRANSINT:[id number] Voice Confirmation ID: [id number] DOCUMENT ID: [id number] FRANCIS RAYMUNDO MD at 0902 CC: [id number] DICTATION DATE: 09/16/17 120 DRESS DESIGNER: 09/16/17 1220 ADM IN [place] [id number] [place] [id number]
--- NOTE | 2017-09-21 09:03 | OP ---
PATIENT NAME: GABRIEL MAYO MEDICAL RECORD: [id number] :68 LOCATION:D.M2 D.2115 ADMISSION DATE:09/15/17 SURGEON: FRANCIS RAYMUNDO MD DATE OF OPERATION: 09/19/2017 PROCEDURES: 1. Left heart catheterization. 2. Selective coronary angiography. 3. Left ventriculogram. INDICATION: Evaluation for mitral valve surgery. PROCEDURE IN DETAIL: After informed consent was obtained and after detailed explanation of risks, benefits as well as alternative therapies, the patient elected to proceed with angiogram and heart catheterization. The right femoral area was prepped and draped in normal sterile fashion. The right femoral artery was cannulated via modified Seldinger technique with placement of 5-Gibraltarian sheath. All catheters exchanged through this sheath. FINDINGS: Left ventriculogram was performed in standard 30-degree REILLY view, reveals good cardiac wall motion throughout all segments. Overall ejection fraction estimated at 50%. There is severe mitral regurgitation present. There is no gradient across the aortic valve. SELECTIVE CORONARY ANGIOGRAPHY: Left main, left anterior descending, left circumflex, right coronary artery are all smooth-walled vessels with no significant angiographic evidence of coronary artery disease. OVERALL IMPRESSION: 1. Severe mitral regurgitation. 2. No aortic valve gradient. 3. Preserved left ventricular function. 4. No coronary artery disease, evaluate for mitral valve repair versus replacement. TRANSINT:[id number] Voice Confirmation ID: [id number] DOCUMENT ID: [id number] FRANCIS RAYMUNDO MD at 0903 CC: [id number] DICTATION DATE: 09/19/17 0758 PROCESS ARCHITECT: 09/19/17 0946 ADM IN [place] [address] [place] [address]
[2017-09-21 09:08] LABS: ANA REFLEX - DIRECT Negative (Negative); ANGIOTENSIN CONVERTING ENZYME 38 U/L (14-82)
[2017-09-21 11:57] VITALS: BP 125/83
[2017-09-21 12:18] LABS: ERYTHROCYTE SEDIMENTATION RATE 1 mm/hr (0-15)
[2017-09-21 13:11] VITALS: Ht 177.8 cm; Wt 86.8 kg
[2017-09-21 15:14] LABS: CRYPTOCOCCUS AG - SERUM Negative (Negative)
[2017-09-21 16:10] LABS: ANCA - ANTIMYELOPEROXIDASE <9.0 U/mL (0.0-9.0); ANCA - ANTIPROTEINASE 3 <3.5 U/mL (0.0-3.5); ANCA - ATYPICAL <1:20 titer (Neg:<1:20); ANCA - CYTOPLASMIC <1:20 titer (Neg:<1:20); ANCA - PERINUCLEAR <1:20 titer (Neg:<1:20)
[2017-09-21 20:00] VITALS: BP 116/72
[2017-09-22 00:55] VITALS: BP 112/68
[2017-09-22 04:35] LABS: BASOPHILS 0.1 % (0-2); EOSINOPHILS 2.8 % (0-7); HEMATOCRIT 47.3 % (42.0-54.0); IMMATURE GRANULOCYTES 0.4 % (0-5); LYMPHOCYTES 14.9 % (15-50); MCHC 33.8 g/dL (31.0-37.0); MCV 91.7 fL (80.0-100.0); MEAN PLATELET VOLUME 10.6 fL (7.4-10.4); MONOCYTES 9.1 % (2-11); NEUTROPHILS 72.7 % (40-80); PLATELET COUNT 204 10x3/uL (130-400); RBC 5.16 10x6/uL (4.20-6.10); RDW 13.1 % (11.5-14.5); WBC 8.5 10x3/uL (4.8-10.8)
[2017-09-22 04:51] LABS: CALC OSMOLALITY 282 mosm/kg (275-300); CALCIUM 8.4 mg/dL (8.5-10.1); CARBON DIOXIDE 27.3 mmol/L (21.0-32.0); CHLORIDE - SERUM 107 mmol/L (98-107); CREATININE - SERUM 1.1 mg/dL (0.6-1.3); GLUCOSE 105 mg/dL (74-106); SODIUM 141 mmol/L (136-145); UREA NITROGEN 19 mg/dL (7-18); eGFR NON AFRICAN AMERICAN 76 mL/min (90-120)
[2017-09-22 05:35] VITALS: BP 108/68
--- NOTE | 2017-09-22 07:30 | NUR ---
RECEIVED PT IN BED AAOX4 RESP UNLABORED DENIES ANY NEEDS OR DISCOMFORT AT THIS TIME NAD NOTED
[2017-09-22 08:00] VITALS: BP 111/80
--- NOTE | 2017-09-22 10:23 | NUR ---
TO RACE CAR MECHANIC VIA BED IN STABLE CONDITION FOR ALEX BY DR RAYMUNDO
--- NOTE | 2017-09-22 11:35 | NUR ---
RECEIVED PT BACK FROM AUTOMOBILE OR TRUCK RENTAL DISPATCHER IN STABLE CONDITION VSS NAD NOTED
[2017-09-22 16:00] VITALS: BP 120/71
[2017-09-22 16:11] LABS: HISTOPLASMA GAL MANNAN AG SER Positive (<0.5 ng/mL)
[2017-09-22 17:58] LABS: BASOPHILS 0.1 % (0-2); EOSINOPHILS 2.4 % (0-7); HEMATOCRIT 51.8 % (42.0-54.0); HEMOGLOBIN 17.4 g/dL (13.5-17.5); IMMATURE GRANULOCYTES 0.4 % (0-5); LYMPHOCYTES 19.3 % (15-50); MCH 31.3 pg (26.0-34.0); MCHC 33.6 g/dL (31.0-37.0); MCV 93.2 fL (80.0-100.0); MEAN PLATELET VOLUME 10.4 fL (7.4-10.4); NEUTROPHILS 67.8 % (40-80); PLATELET COUNT 188 10x3/uL (130-400); RBC 5.56 10x6/uL (4.20-6.10); RDW 13.1 % (11.5-14.5); WBC 8.4 10x3/uL (4.8-10.8)
[2017-09-22 18:08] LABS: APTT 26.2 SECONDS (22.8-39.4); INR 0.96 (0.85-1.17); PROTIME 12.6 SECONDS (11.6-15.0)
--- NOTE | 2017-09-22 20:39 | NUR ---
PT AWAKE, ALERT, ORIENTED, SITTING UP IN CHAIR, DENIES ANY NEEDS AT THIS TIME. CONTINUE TO MONITOR CLOSELY.
[2017-09-22 21:38] VITALS: BP 123/80
[2017-09-23] VITALS (10 sets, daily range): BP systolic 100–123; BP diastolic 64–74
[2017-09-23 06:16] LABS: BASOPHILS 0.3 % (0-2); EOSINOPHILS 2.6 % (0-7); HEMATOCRIT 49.3 % (42.0-54.0); HEMOGLOBIN 16.5 g/dL (13.5-17.5); IMMATURE GRANULOCYTES 0.4 % (0-5); LYMPHOCYTES 17.4 % (15-50); MCH 30.7 pg (26.0-34.0); MCHC 33.5 g/dL (31.0-37.0); MCV 91.8 fL (80.0-100.0); MEAN PLATELET VOLUME 10.6 fL (7.4-10.4); MONOCYTES 6.7 % (2-11); NEUTROPHILS 72.6 % (40-80); PLATELET COUNT 217 10x3/uL (130-400); RBC 5.37 10x6/uL (4.20-6.10); RDW 13.1 % (11.5-14.5); WBC 7.9 10x3/uL (4.8-10.8)
[2017-09-23 06:43] LABS: CALC OSMOLALITY 282 mosm/kg (275-300); CALCIUM 8.3 mg/dL (8.5-10.1); CARBON DIOXIDE 27.8 mmol/L (21.0-32.0); CHLORIDE - SERUM 106 mmol/L (98-107); CREATININE - SERUM 1.1 mg/dL (0.6-1.3); GLUCOSE 100 mg/dL (74-106); POTASSIUM - SERUM 4.1 mmol/L (3.5-5.1); SODIUM 140 mmol/L (136-145); UREA NITROGEN 25 mg/dL (7-18); eGFR NON AFRICAN AMERICAN 76 mL/min (90-120)
--- NOTE | 2017-09-23 07:21 | NUR ---
PT UP TO CHAIR, RESP EVEN AND UNLABORED, RT HAND IV SL. PT DENIES ANY NEEDS AT THIS TIME, CALL LIGHT IN REACH, NAD NOTED, WILL CONTINUE PLAN OF CARE.
[2017-09-23 09:18] LABS: A. FUMIGATUS #1 ABS Negative (Negative); PNEUM - A PULLULANS ABS Negative (Negative); PNEUM - MICROPOLY FAENI ABS Negative (Negative); PNEUM - PIGEON SERUM ABS Negative (Negative); PNEUM - THERMOA VULGARIS #1 Negative (Negative); PNEUM - THERMOACT SACCHARII Negative (Negative)
--- NOTE | 2017-09-23 09:38 | NUR ---
IV NOT WORKING, D/C IV WITH TIP INTACT, NEW 20G IV STARTED TO RT FA X1 STICK, PT TOLERATED PROCEDURE WELL. PRE-OP MEDS GIVEN, B[place] RESPIRATORY THERAPIST HERE TO TAKE PT FOR BRONCH. NAD NOTED.
--- NOTE | 2017-09-23 11:40 | NUR ---
RECEIVED PT BACK TO ROOM 2114, VITAL SIGNS STABLE, PT LITTLE SLEEPY FROM MEDS, BUT EASILY AROUSES TO VOICE. DR. VILLA AT BEDSIDE. PT DENIES ANY NEEDS AT THIS TIME. SET UP ON FREQUENT VITAL SIGNS. NAD NOTED, WILL CONTINUE TO MONITOR.
--- NOTE | 2017-09-23 12:23 | NUR ---
Nutrition follow-up: Pt NPO at this time for bronch PO intake of low sodium diet has been 100% of most meals Labs reviewed +BM Wt: 201# CDT- RDN following.
--- NOTE | 2017-09-23 13:25 | NUR ---
ADMINISTERED DAILY MEDS ORDERED. PT HAD NO TROUBLE SWALLOWING PILLS. ALSO ADMINISTERED 400MG OF MORTRIN FOR PAIN LEVEL OF 2/10. PT DENIES ANY OTHER NEEDS AT THIS TIME. CALL LIGHT IN REACH, AT BEDSIDE,NAD NOTED, WILL CONTINUE TO MONITOR.
[2017-09-23 16:45] LABS: EOS BF 1 %; MACROPHAGES BF 39 %; MESOTHELIALS BF 25 %; NEUT - BF 17 %
--- NOTE | 2017-09-23 17:30 | NUR ---
CALLED PHARMACY AND SPOKE WITH SONDRA, INFORMED HIM THAT I NEED SPORANOX, SONDRA STATED THAT HE WOULD BRING IT UP.
--- NOTE | 2017-09-23 20:29 | NUR ---
PT AWAKE, ALERT, ORIENTED, SITTING UP IN CHAIR, DENIES ANY NEEDS. PT STATES HE HAS EATEN SINCE HIS BRONCH TODAY WITHOUT ANY DIFFICULTY. IV ROCEPHIN INFUSING NOW, CONTINUE TO MONITOR CLOSELY.
[2017-09-24 01:58] VITALS: BP 122/59
[2017-09-24 05:10] VITALS: BP 96/53
--- NOTE | 2017-09-24 05:25 | NUR ---
PT AWAKE, ALERT, ORIENTED, SITTING UP IN CHAIR. PT STATES HE SLEPT BETTER THIS SHIFT, DENIES ANY NEEDS. CONTINUE TO MONITOR CLOSELY.
[2017-09-24 05:54] LABS: BASOPHILS 0.1 % (0-2); EOSINOPHILS 1.6 % (0-7); HEMATOCRIT 47.3 % (42.0-54.0); HEMOGLOBIN 15.8 g/dL (13.5-17.5); IMMATURE GRANULOCYTES 0.4 % (0-5); LYMPHOCYTES 17.8 % (15-50); MCH 30.7 pg (26.0-34.0); MCHC 33.4 g/dL (31.0-37.0); MCV 91.8 fL (80.0-100.0); MEAN PLATELET VOLUME 10.7 fL (7.4-10.4); MONOCYTES 6.3 % (2-11); NEUTROPHILS 73.8 % (40-80); PLATELET COUNT 213 10x3/uL (130-400); RBC 5.15 10x6/uL (4.20-6.10); WBC 7.9 10x3/uL (4.8-10.8)
[2017-09-24 06:03] LABS: ANION GAP 10.5 mmol/L (8-16); CALCIUM 8.4 mg/dL (8.5-10.1); CARBON DIOXIDE 27.5 mmol/L (21.0-32.0); CREATININE - SERUM 1.2 mg/dL (0.6-1.3)
--- NOTE | 2017-09-24 07:10 | NUR ---
PT UP TO CHAIR, RESP EVEN AND UNLABORED, RT FA IV SL. PT DENIES ANY NEEDS AT THIS TIME, CALL LIGHT IN REACH, NAD NOTED, WILL CONTINUE PLAN OF CARE.
[2017-09-24 07:42] VITALS: BP 118/78
[2017-09-24 12:00] VITALS: BP 114/62
--- NOTE | 2017-09-24 14:18 | NUR ---
PT UP TO CHAIR, DENIES ANY NEEDS AT THIS TIME. CALL LIGHT IN REACH, AT BEDSIDE, NAD NOTED, WILL CONTINUE PLAN OF CARE.
[2017-09-24 15:39] VITALS: BP 114/59; BP 88/59
[2017-09-24 21:12] VITALS: BP 102/61
[2017-09-25 01:05] VITALS: BP 112/63
[2017-09-25 05:22] VITALS: BP 112/67
--- NOTE | 2017-09-25 06:24 | NUR ---
PT AWAKE, ALERT, ORIENTED, SITTING UP IN CHAIR, STATES HE SLEPT WELL THIS SHIFT. PT STATES HE IS READY TO GO HOME. NO NEEDS. CONTINUE TO MONITOR CLOSELY.
--- NOTE | 2017-09-25 07:08 | NUR ---
PT UP TO CHAIR, RESP EVEN AND UNLABORED, RT FA IV SL. PT DENIES ANY NEEDS AT THIS TIME. CALL LIGHT IN REACH, NAD NOTED, WILL CONTINUE PLAN OF CARE.
[2017-09-25 08:00] VITALS: BP 120/79
[2017-09-25 12:00] VITALS: BP 105/66
[2017-09-25 13:16] LABS: BASOS 0 % (Not Estab.); CD4 - % CD4 POS. LYMPH 38.2 % (30.8-58.5); CD4 - ABSOLUTE CD4 HELPER 497 /uL (359-1519); EOS 1 % (Not Estab.); EOS (ABSOLUTE) 0.1 x10E3/uL (0.0-0.4); HEMATOCRIT 47.4 % (37.5-51.0); HEMOGLOBIN 15.7 g/dL (12.6-17.7); IMMUNOGLOBULIN A 189 mg/dL (90-386); IMMUNOGLOBULIN G 596 mg/dL (700-1600); IMMUNOGLOBULIN M 50 mg/dL (20-172); LYMPHS 17 % (Not Estab.); LYMPHS (ABSOLUTE) 1.3 x10E3/uL (0.7-3.1); MCH 30.4 pg (26.6-33.0); MCHC 33.1 g/dL (31.5-35.7); MCV 92 fL (79-97); MONOCYTES 7 % (Not Estab.); MONOCYTES (ABSOLUTE) 0.6 x10E3/uL (0.1-0.9); NEUTROPHILS 75 % (Not Estab.); NEUTROPHILS (ABSOLUTE) 5.9 x10E3/uL (1.4-7.0); PLATELETS 214 x10E3/uL (150-379); RBC 5.16 x10E6/uL (4.14-5.80); RDW 13.6 % (12.3-15.4); WBC 7.9 x10E3/uL (3.4-10.8)
--- NOTE | 2017-09-25 14:57 | NUR ---
RECEIVED A CALL FROM BRENDA SIERRA WITH [employer] PT'S INSURANCE, BRENDA STATED TO FAX ALL INFORMATION TO THE FOLLOWING NUMBER IF PT NEEDED ANY HOME CARE NEEDS. ALSO LEFT HER NUMBER BRENDA SIERRA [phone] EXTENSION [phone].
--- NOTE | 2017-09-25 15:02 | NUR ---
PT UP AMBULATING AROUND NURSES STATION WITH . NAD NOTED.
[2017-09-25 16:00] VITALS: BP 107/62
[2017-09-25 16:15] LABS: ACID FAST SMEAR Negative (()); AFB SPECIMEN PROCESSING Concentration (()); FUNGUS STAIN Final report (())
--- NOTE | 2017-09-25 18:00 | NUR ---
Patient Name: GABRIEL MAYO Admission Status: Elective Accout number: [id number] Admission Date: 09-15-2017 : 1970 Admission Diagnosis:CHEST PAIN, UNSPECIFIED Attending: ITALIA MORGAN Current LOS: 10 Anticipated DC Date: 09-28-2017 Planned Disposition: Home Primary Insurance: [employer]IG[employer] PPO Discharge Planning Comments: * Is the patient Alert and Oriented? Yes 0 * How many steps to enter\exit or inside your home? 2 0 * PCP DR. ZEPEDA [place] 0 * Pharmacy [facility] IN [place] 0 * Preadmission Environment Home with Family 0 * ADLs Independent 0 * Equipment None 0 * Other Equipment COMPANY IN [place] - MEDICAL EQUIPMENT PROVIDER PREFERENCE. NO PREFERENCE ON INFUSION COMPANY IF IT IS REQUIRED. 0 * List name and contact numbers for known caregivers / representatives who currently or will assist patient after discharge: NIKKI KAUFFMAN, SPOUSE, 0 * Community resources currently utilized None 0 * Please name any agencies selected above. NONE 0 * Additional services required to return to the preadmission environment? No 0 * Can the patient safely return to the preadmission environment? Yes 0 * Has this patient been hospitalized within the prior 30 days at any hospital? No 0 CM RECEIVED REQUEST TO ASSIST WITH MEDICATIONS FOR PT'S DISCHARGE HOME ON THURSDAY; NURSE WAS INFORMED THAT PT'S MEDICATION OF ITRACONAZOLE, 200MG BID PO WOULD NOT BE COVERED BY INSURANCE EXCEPT FOR #30 PILLS FOR 30 DAYS, PT REQUIRE #120 FOR 30 DAYS, PT'S REPORTED COSTS WOULD BE $1232 PER MONTH, PT REQUIRES MEDICATION FOR 3 MONTHS. CM CALLED PT'S INSURANCE COMPANY PHARMACY LINE, , SPOKE TO SONIA WHO REVIEWED INFORMATION AND REPORTED TO CM THAT PT'S FULL PRESCRIPTION WOULD BE COVERERED UNDER INSURANCE. CM CALLED MILA AT [facility], , WHO RAN PRESCRIPTION, INDICATED IT IS COVERED WITH COPAY OF $70.68 FOR MONTH SUPPLY, HE WILL ORDER IT NOW, WILL HAVE FIRST MONTH READY FOR MERCHANDISING COORDINATOR ON 09-28-17. [address] POLICE OFFICER NURSE NOTIFIED. CM MET WITH PT IN ROOM TO DISCUSS DISCHARGE PLANNING AND NEEDS. PT REPORTS LIVING AT HOME INDEPENDENTLY WITH SPOUSE. PT HAS NO MEDICAL EQUIPMENT AND NO OUTSIDE SERVICES ASSISTING IN THE HOME. CM DISCUSSED AVAILABILITY OF HOME HEALTH, REHAB SERVICES AND MEDICAL EQUIPMENT. PT THINKS HE MAY NEED IV ANTIBIOTICS AND IF HE DOES, HE HAS NO PREFERENCE ON INFUSION PROVIDER. PT REPORTS FAMILY WILL PICK HIM UP FOR DISCHARGE HOME. PT INFORMED OF COPAY FOR ORAL ANTIBIOTIC, REPORTS IT TO BE AFFORDABLE. CM TO CONTINUE TO FOLLOW AND ASSIST IF NEEDED. [facility], , WILL HAVE FIRST MONTH OF PT'S ORAL ITRACONAZOLE READY FOR MERCHANDISING COORDINATOR ON 09-28-17. IT IS COVERED BY PT'S INSURANCE WITH COPAY OF $70.68 FOR MONTH SUPPLY, PT REPORTS ABILITY TO AFFORD THIS. Harness Brusher: Chan Palmer
--- NOTE | 2017-09-25 19:36 | NUR ---
ASSESSMENT COMPLETE, A&O, RESPERATIONS EVEN ON RA. IV TO RIGHT FOREARM SL, SITE CLEAN AND DRY. PT DENIES PAIN OR NEEDS, BED LOW, CL IN REACH.
[2017-09-25 20:00] VITALS: BP 149/59
--- NOTE | 2017-09-25 21:03 | NUR ---
SITTING UP IN CHAIR WATCHING TV, HS MEDS GIVEN WITH FRESH ICE WATER, PT DENIES PAIN OR NEEDS, CL IN REACH.
--- NOTE | 2017-09-25 22:16 | NUR ---
AMBIEN 10 MG GIVEN AT PT REQUEST.
[2017-09-26] VITALS: BP 110/60
--- NOTE | 2017-09-26 00:25 | NUR ---
RESEARCH COORDINATOR AT BED SIDE TO OBTAIN VITALS.
--- NOTE | 2017-09-26 03:37 | NUR ---
RESTING WITH EYES CLOSED, RESPERATIONS EVEN, NO S/S DISTRESS NOTED.
[2017-09-26 04:00] VITALS: BP 101/62
--- NOTE | 2017-09-26 06:46 | NUR ---
RN NOTE: PT SITTING UP IN BED, A,A, OX3. VSS, DENIES ANY COMPLAINTS. WILL CONT TO MONITOR.
--- NOTE | 2017-09-26 07:15 | NUR ---
ASSESSMENT COMPLETED. UP IN BEDSIDE CHAIR. DENIES ANY NEEDS, SL TO RIGHT FA. UP AB JACQUELINE. TELEMERTY SHOWS SR 96. WILL MONITOR
[2017-09-26 07:54] VITALS: BP 105/58
[2017-09-26 12:30] VITALS: BP 113/66
--- NOTE | 2017-09-26 13:49 | NUR ---
UP IN ROOM. DENIES ANY NEEDS. WILL MONITOR
[2017-09-26 15:49] VITALS: BP 100/56
--- NOTE | 2017-09-26 16:30 | NUR ---
LYING QUIETLY. DENIES ANY NEEDS, SR UP WITH CALL LIGHT IN REACH
--- NOTE | 2017-09-26 17:41 | NUR ---
UP IN BED SIDE CHAIR. DENIES ANY NEEDS. WILL MONITOR
[2017-09-26 20:00] VITALS: BP 102/57
[2017-09-27 04:00] VITALS: BP 108/72
--- NOTE | 2017-09-27 07:30 | NUR ---
RECEIVED PT SITTING IN CHAIR DENIES ANY NEEDS OR DISCOMFORT RESP UNLABORED TELEMETRY INTACT SR RATE 77 RFA SALINE LOCK NOTED WITH OCCLUSIVE DRSG SITE FREE OF REDNESS OR EDEMA
[2017-09-27 08:00] VITALS: BP 114/73
[2017-09-27 12:00] VITALS: BP 107/61
[2017-09-27 16:00] VITALS: BP 106/64
--- NOTE | 2017-09-27 19:00 | NUR ---
RECEIVED REPORT AND ASSUMED PT CARE FROM DAY SHIFT NURSE AT THIS TIME.
--- NOTE | 2017-09-27 20:30 | NUR ---
INITIAL ASSESSMENT COMPLETED, VSS, AFEBRILE. RESP EVEN AND UNLABORED. PT UP SITTING IN CHAIR. RIGHT FA WITH SALINE LOCK, PATENT AND IV ROCEPIN STARTED SCHEDULED AT THIS TIME. NSR ON MONITOR, HR 70'S. DENIES ANY C/O PAIN. CALL LIGHT WITHIN REACH. WILL CONT TO MONITOR.
[2017-09-27 21:01] VITALS: BP 136/59
[2017-09-28 00:52] VITALS: BP 145/88
--- NOTE | 2017-09-28 02:18 | NUR ---
PT RESTING SOUNDLY WITHOUT C/O OR DISTRESS NOTED. CALL LIGHT WITHIN REACH. DENIES ANY C/O PAIN. WILL CONT TO MONITOR.
[2017-09-28 05:05] LABS: BASOPHILS 0.2 % (0-2); EOSINOPHILS 0.9 % (0-7); HEMATOCRIT 49.3 % (42.0-54.0); HEMOGLOBIN 16.6 g/dL (13.5-17.5); IMMATURE GRANULOCYTES 0.3 % (0-5); LYMPHOCYTES 14.9 % (15-50); MCH 30.5 pg (26.0-34.0); MCHC 33.7 g/dL (31.0-37.0); MCV 90.6 fL (80.0-100.0); MEAN PLATELET VOLUME 10.7 fL (7.4-10.4); MONOCYTES 7.2 % (2-11); NEUTROPHILS 76.5 % (40-80); PLATELET COUNT 213 10x3/uL (130-400); RBC 5.44 10x6/uL (4.20-6.10); RDW 13.1 % (11.5-14.5); WBC 9.9 10x3/uL (4.8-10.8)
[2017-09-28 05:34] LABS: CALC OSMOLALITY 280 mosm/kg (275-300); CALCIUM 8.7 mg/dL (8.5-10.1); CARBON DIOXIDE 28.1 mmol/L (21.0-32.0); CHLORIDE - SERUM 105 mmol/L (98-107); CREATININE - SERUM 1.1 mg/dL (0.6-1.3); GLUCOSE 110 mg/dL (74-106); POTASSIUM - SERUM 4.3 mmol/L (3.5-5.1); SODIUM 137 mmol/L (136-145); UREA NITROGEN 28 mg/dL (7-18); eGFR NON AFRICAN AMERICAN 76 mL/min (90-120)
[2017-09-28 05:36] VITALS: BP 141/77
[2017-09-28 08:42] VITALS: BP 126/65
--- NOTE | 2017-09-28 09:26 | NUR ---
ASSESSMENT DONE. DENIES NEEDS.
--- NOTE | 2017-09-28 10:18 | NUR ---
Patient Name: GABRIEL MAYO Encounter No: [id number] : 1970 Primary Insurance: [employer]IG[employer] PPO Anticipated DC Date: 09-28-2017 Planned Disposition: Home External Planned Provider: [facility] FOR IV INFUSION DRUGS DCP follow-up note: CM RECEIVED ORDERS TO ARRANGE IV ANTIBIOTICS WITH NO NEED OF HOME HEALTH; CM ALSO RECEIVED ORDER TO CHECK INSURANCE COVERAGE FOR ITRACONAZOLE. CM MET WITH PT AND SPOUSE IN ROOM, THEY HAVE NO PREFERENCE ON INFUSION MEDICATION PROVIDER; ALREADY HAVE COPAY INFORMATION FOR ORAL ANTIBIOTICE OF $70.68 PER MONTH DETERMINED BY CM THURSDAY. PT AND SPOUSE IN AGREEMENT WITH DISCHARGE HOME TODAY IF IV ANTIBIOTICS CAN BE ARRANGED AND ARE NOW AWAITING A MID LINE TO BE PLACED. PT'S SPOUSE TO TRANSPORT HOME. CM CALLED [facility], , SPOKE TO JOSLYN WHO REPORTS BEING IN NETWORK WITH PT'S INSURANCE. CM FAXED REFERRAL TO [facility] AT [phone]. [facility], , WILL HAVE FIRST MONTH OF PT'S ORAL ITRACONAZOLE READY FOR FAMILY DAY CARE WORKER ON TODAY, 09-28-17. IT IS COVERED BY PT'S INSURANCE WITH COPAY OF $70.68. CM WAITING COPAY INFORMATION FOR IV CEFTRIAXONE FROM [facility]. Chan Palmer, CASE MANAGEMENT
--- NOTE | 2017-09-28 10:32 | NUR ---
SITTING UP ON BEDSIDE WITH . MONITOR SHOWS NSR @80. WILL CONTINUE TO MONITOR.
--- NOTE | 2017-09-28 13:16 | NUR ---
Patient Name: GABRIEL MAYO Admission Status: Elective Accout number: [id number] Admission Date: 09-15-2017 : 1970 Admission Diagnosis:CHEST PAIN, UNSPECIFIED Attending: ITALIA MORGAN Current LOS: 13 Anticipated DC Date: 09-28-2017 Planned Disposition: Home with infusion therapy services Primary Insurance: [employer] PPO PLANNED EXTERNAL PROVIDER: [facility] Discharge Planning Comments: [facility], , WILL HAVE FIRST MONTH OF PT'S ORAL ITRACONAZOLE READY FOR POST OFFICE MARKUP CLERK ON TODAY, 09-28-17. IT IS COVERED BY PT'S INSURANCE WITH COPAY OF $70.68. CM CALLED [facility], , SPOKE TO JOSLYN WHO REPORTS PT'S IV MEDICATION BEING COVERED AT 100%, WILL ARRANGE DELIVERY OF HOME DOSE FOR TOMORROW WITH PT AND SPOUSE; CM PROVIDED PT'S SPOUSE NAME AND NUMBER (NIKKI, ). PT DENIES FURTHER DISCHARGE NEEDS, SPOUSE TO TRANSPORT HOME AFTER MIDLINE PLACEMENT AND PM DOSE OF IV ANTIBIOTIC. Air Traffic Coordinator: Chan Palmer
[2017-09-28 13:41] VITALS: BP 116/66
[2017-09-28] MEDS ORDERED: ROCEPHIN 2 GM/D52 G1 IV (14:39)
[2017-09-28] MEDS ORDERED: MUCINEX DM ER1 EAC1 PO (14:41)
[2017-09-28] MEDS ORDERED: BENZONATATE200 MG PO (14:41)
[2017-09-28] MEDS ORDERED: LASIX40 MG PO (14:42)
[2017-09-28] MEDS ORDERED: BENICAR20 MG PO (14:42)
[2017-09-28] MEDS ORDERED: SPORANOX100 MG PO (14:44)
--- NOTE | 2017-09-28 16:36 | NUR ---
DC GIVEN TO PT AND
--- NOTE | 2017-09-28 17:07 | NUR ---
DC HOME PER PERSONAL CAR
--- NOTE | 2017-09-30 13:23 | DS ---
PATIENT:GABRIEL MAYO :[birth year] MEDICAL RECORD: [id number] DISCHARGE SUMMARY ADMISSION DATE: 09/15/17 DISCHARGE DATE: 09/28/17 DATE OF ADMISSION: 09/15/2017 DATE OF DISCHARGE: 09/28/2017 PROBLEM LIST: 1. Endocarditis. 2. Mitral valve prolapse. HISTORY AND HOSPITAL COURSE: Admitted after being seen in the office, had known mitral valve prolapse, was admitted with malaise, fatigue, fever. Had been treated as an outpatient for bronchitis, was found to have endocarditis. Was seen by Dr. Maharaj, Dr. Lorenzo, and Dr. Nina in consultation. Had a central line placed for retirement antibiotics to cover Strep viridans. Also been treated for histoplasmosis as well. He will be seen in the office in 3-4 weeks, will probably need to repeat ALEX. 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 TRANSINT:[id number] Voice Confirmation ID: [id number] DOCUMENT ID: [id number] ITALIA MORGAN MD at 1323 CC: [id number] DICTATION DATE: 09/28/17 1436 WATER POLLUTION SCIENTIST: 09/29/17 0727 DIS IN 09/28/17 [place] [address] [place] [address]
[2017-10-04 12:08] LABS: VIRAL - RESULT No virus isolated. (())
--- NOTE | 2017-10-06 12:14 | TEE ---
PATIENT:GABRIEL MAYO MEDICAL RECORD: [id number] LOCATION:[place] [address] AGE OF PATIENT: 46 ADMISSION DATE: 09/15/17 SEX: M REFERRING PHYSICIAN: INTERPRETING PHYSICIAN: FRANCIS DOMINIQUE MD TRANSESOPHAGEAL ECHOCARDIOGRAM ALEX CHARGE Y INDICATIONS: ASSESS MITRAL VALVE, REGURGT MVP AND VEGATATION PREMEDICATIONS: PATIENT'S RESPONSE PROCEDURE DOPPLER MEASUREMENTS: LVIT LA PA 119 RA LVOT 112 RVOT 67 Asc. Ao 120 AV Gradient Peak 5.74 AV Mean 3.12 AV Area 3.0 MV Gradient Peak 4.97 MV Mean 1.91 MV Area INTERPRETATION: Doppler: 2-D: VEG ON MV WITH MVP AND THIICKEN LEFTS COLOR FLOW DOPPLER SEVERE MITRAL REGUREG NORMAL SALINE STUDY: MISCELLANOUS: DIAGNOSIS: PLAN: Marker Shipments:1 Dr. Dominique Gatekeeper: [place] BARRIENTOS COMMENTS: KAYLA PATIENT DATE OF SERVICE: 09/22/2017 PROCEDURE: Transesophageal echo evaluation of mitral valve for endocarditis. FINDINGS: 1. Left ventricular chamber size is within normal limits. Left ventricular systolic function is normal. Overall ejection fraction estimated at 60%. 2. Left atrium is mildly enlarged. TRANSESOPHAGEAL ECHOCARDIOGRAM REPORT [id number] GABRIEL MAYO 3. Right atrium and right ventricle chamber sizes are within normal limits. 4. 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 The remaining valvular structures have normal structure and motion. 5. No evidence of pericardial effusion or left ventricular thrombus. TRANSINT:[id number] Voice Confirmation ID: [id number] DOCUMENT ID: [id number] at 1214 CC: [id number] DICTATION DATE: 09/22/17 1123 CONSTRUCTION REPRESENTATIVE: 09/22/17 2351 DIS IN 09/28/17 [place] [id number] [facility] [place] [address]
[2017-10-23 08:17] LABS: FUNGUS MYCOLOGY CULTURE Final report (())
[2017-11-13 11:17] LABS: ACID FAST CULTURE Negative (())
== END 2017-09-28 17:08 | disposition home or self-care (01) | DRG 264 ==
LOC: D.M2 14:51
PROVIDERS: Internal Medicine Interventional Cardiology; Internal Medicine Pulmonary Disease; Student in an Organized Health Care Education/Training Program; ADMIT Internal Medicine Interventional Cardiology
PROC: B2151ZZ Fluoroscopy of Left Heart using Low Osmolar Contrast (ICD-10-PCS; 2017-09-19)
PROC: 4A023N7 Measurement of Cardiac Sampling and Pressure, Left Heart, Percutaneous Approach (ICD-10-PCS; 2017-09-19)
PROC: B2111ZZ Fluoroscopy of Multiple Coronary Arteries using Low Osmolar Contrast (ICD-10-PCS; principal; 2017-09-19 07:45)
PROC: 0B9M8ZX Drainage of Bilateral Lungs, Via Natural or Artificial Opening Endoscopic, Diagnostic (ICD-10-PCS; 2017-09-23)
PROC: 0BD78ZX Extraction of Left Main Bronchus, Via Natural or Artificial Opening Endoscopic, Diagnostic (ICD-10-PCS; 2017-09-23)
PROC: 0BD38ZX Extraction of Right Main Bronchus, Via Natural or Artificial Opening Endoscopic, Diagnostic (ICD-10-PCS; 2017-09-23)
PROC: 05HC33Z Insertion of Infusion Device into Left Basilic Vein, Percutaneous Approach (ICD-10-PCS; 2017-09-28)
PROC: B54NZZA Ultrasonography of Left Upper Extremity Veins, Guidance (ICD-10-PCS; 2017-09-28)
DX: I33.0 Acute and subacute infective endocarditis (principal); J18.9 Pneumonia, unspecified organism; I08.3 Combined rheumatic disorders of mitral, aortic and tricuspid valves; R21 Rash and other nonspecific skin eruption; J32.9 Chronic sinusitis, unspecified; R19.7 Diarrhea, unspecified; K44.9 Diaphragmatic hernia without obstruction or gangrene; I10 Essential (primary) hypertension; I34.1 Nonrheumatic mitral (valve) prolapse

== ENCOUNTER → 2017-10-05 12:36 | Outpatient (CLI) | payer OTHER ==
[2017-09-21 13:11] VITALS: BMI 28.5
[~2017-10-05 12:36] MED LIST: ASPIRIN81 MG PO; BENICAR20 MG PO; BENZONATATE200 MG PO; CORDARONE200 MG PO; HEMOCYTE PLUS C1 CAP PO; K-DUR20 MEQ PO; LASIX40 MG PO; MIRALAX17 GM PO; MOBIC7.5 MG PO; MUCINEX DM ER1 EAC1 PO; PERCOCET 10/3251 TA1 PO; PHENAZOPYRIDIN100 MG PO; ROCEPHIN 2 GM/D52 G1 IV; SPORANOX100 MG PO; TESTOSTERON200 MG/ML IM
[2017-10-05 13:29] LABS: BASOPHILS 0.1 % (0-2); EOSINOPHILS 0.3 % (0-7); HEMATOCRIT 51.5 % (42.0-54.0); HEMOGLOBIN 17.6 g/dL (13.5-17.5); IMMATURE GRANULOCYTES 0.5 % (0-5); LYMPHOCYTES 10.6 % (15-50); MCH 31.2 pg (26.0-34.0); MCHC 34.2 g/dL (31.0-37.0); MCV 91.3 fL (80.0-100.0); MEAN PLATELET VOLUME 11.6 fL (7.4-10.4); MONOCYTES 8.9 % (2-11); NEUTROPHILS 79.6 % (40-80); PLATELET COUNT 238 10x3/uL (130-400); RBC 5.64 10x6/uL (4.20-6.10); RDW 13.3 % (11.5-14.5); WBC 15.5 10x3/uL (4.8-10.8)
[2017-10-05 13:37] LABS: ALBUMIN 3.5 g/dL (3.4-5.0); ALKALINE PHOSPHATASE 55 U/L (46-116); ALT (SGPT) 30 U/L (10-68); BILIRUBIN - TOTAL 0.36 mg/dL (0.2-1.3); CALC OSMOLALITY 285 mosm/kg (275-300); CALCIUM 8.7 mg/dL (8.5-10.1); CHLORIDE - SERUM 106 mmol/L (98-107); CREATININE - SERUM 1.2 mg/dL (0.6-1.3); GLUCOSE 74 mg/dL (74-106); POTASSIUM - SERUM 3.8 mmol/L (3.5-5.1); PROTEIN - SERUM 6.9 g/dL (6.4-8.2); SODIUM 142 mmol/L (136-145); UREA NITROGEN 25 mg/dL (7-18); eGFR NON AFRICAN AMERICAN 69 mL/min (90-120)
[2017-10-05 13:44] LABS: C-REACTIVE PROTEIN < 0.2 mg/dL (0.0-0.9)
[2017-10-05 14:33] LABS: ERYTHROCYTE SEDIMENTATION RATE 1 mm/hr (0-15)
== END | disposition home or self-care (01) ==
LOC: D.LABREF 12:36
PROVIDERS: Student in an Organized Health Care Education/Training Program
DX: I33.0 Acute and subacute infective endocarditis (principal); Z51.81 Encounter for therapeutic drug level monitoring; Z79.2 Long term (current) use of antibiotics

== ENCOUNTER → 2017-10-09 14:24 | Outpatient (CLI) | payer OTHER ==
[2017-09-21 13:11] VITALS: BMI 28.5
[2017-10-10 14:12] LABS: HEP B CORE AB TOTAL Negative (Negative); HEPATITIS C ANTIBODY <0.1 (0.0-0.9)
== END | disposition home or self-care (01) ==
LOC: D.US 14:24
PROVIDERS: Internal Medicine Cardiovascular Disease
DX: I65.23 Occlusion and stenosis of bilateral carotid arteries (principal); Z01.812 Encounter for preprocedural laboratory examination

== ENCOUNTER → 2017-10-12 13:32 | Outpatient (CLI) | payer OTHER ==
[2017-09-21 13:11] VITALS: BMI 28.5
[2017-10-12 14:19] LABS: BASOPHILS 0.1 % (0-2); EOSINOPHILS 0.3 % (0-7); HEMOGLOBIN 16.6 g/dL (13.5-17.5); IMMATURE GRANULOCYTES 0.2 % (0-5); LYMPHOCYTES 8.8 % (15-50); MCH 30.7 pg (26.0-34.0); MCHC 33.2 g/dL (31.0-37.0); MCV 92.4 fL (80.0-100.0); MEAN PLATELET VOLUME 11.7 fL (7.4-10.4); MONOCYTES 9.9 % (2-11); NEUTROPHILS 80.7 % (40-80); RBC 5.41 10x6/uL (4.20-6.10); RDW 13.9 % (11.5-14.5); WBC 12.7 10x3/uL (4.8-10.8)
[2017-10-12 14:21] LABS: PLATELET COUNT 171 10x3/uL (130-400)
[2017-10-12 14:36] LABS: ALBUMIN 3.3 g/dL (3.4-5.0); ALKALINE PHOSPHATASE 54 U/L (46-116); ALT (SGPT) 30 U/L (10-68); BILIRUBIN - TOTAL 0.29 mg/dL (0.2-1.3); CALC OSMOLALITY 283 mosm/kg (275-300); CALCIUM 8.6 mg/dL (8.5-10.1); CARBON DIOXIDE 27.6 mmol/L (21.0-32.0); CHLORIDE - SERUM 105 mmol/L (98-107); CREATININE - SERUM 1.1 mg/dL (0.6-1.3); GLUCOSE 82 mg/dL (74-106); PROTEIN - SERUM 6.1 g/dL (6.4-8.2); SODIUM 140 mmol/L (136-145); UREA NITROGEN 28 mg/dL (7-18); eGFR NON AFRICAN AMERICAN 76 mL/min (90-120)
[2017-10-12 15:21] LABS: ERYTHROCYTE SEDIMENTATION RATE 0 mm/hr (0-15)
== END | disposition home or self-care (01) ==
LOC: D.LABREF 13:32
PROVIDERS: Student in an Organized Health Care Education/Training Program
DX: B39.2 Pulmonary histoplasmosis capsulati, unspecified (principal); Z51.81 Encounter for therapeutic drug level monitoring; Z79.2 Long term (current) use of antibiotics

== ENCOUNTER 2017-10-13 08:30 | Inpatient (IN) | payer OTHER ==
[~2017-10-13] VITALS: Ht 177.8 cm; Wt 100.5 kg
[~2017-10-13 08:30] MED LIST changes: -ASPIRIN81 MG PO; -CORDARONE200 MG PO; -HEMOCYTE PLUS C1 CAP PO; -K-DUR20 MEQ PO; -MIRALAX17 GM PO; -PERCOCET 10/3251 TA1 PO; -PHENAZOPYRIDIN100 MG PO
[2017-10-13 09:38] LABS: BASOPHILS 0 % (0-2); EOSINOPHILS 0.4 % (0-7); HEMATOCRIT 47.5 % (42.0-54.0); HEMOGLOBIN 16.1 g/dL (13.5-17.5); IMMATURE GRANULOCYTES 0.3 % (0-5); LYMPHOCYTES 9.6 % (15-50); MCH 30.8 pg (26.0-34.0); MCHC 33.9 g/dL (31.0-37.0); MCV 90.8 fL (80.0-100.0); MEAN PLATELET VOLUME 11.2 fL (7.4-10.4); MONOCYTES 10.3 % (2-11); NEUTROPHILS 79.4 % (40-80); PLATELET COUNT 153 10x3/uL (130-400); RBC 5.23 10x6/uL (4.20-6.10); RDW 13.7 % (11.5-14.5); WBC 11.7 10x3/uL (4.8-10.8)
[2017-10-13 09:47] LABS: APTT 23.7 SECONDS (22.8-39.4); HEMOGLOBIN A1C 5.5 % (4.8-6.0); INR 0.96 (0.85-1.17); PROTIME 12.3 SECONDS (11.6-15.0)
[2017-10-13 10:03] LABS: ALKALINE PHOSPHATASE 47 U/L (46-116); ALT (SGPT) 26 U/L (10-68); CALC OSMOLALITY 280 mosm/kg (275-300); CALCIUM 8.8 mg/dL (8.5-10.1); CARBON DIOXIDE 26.2 mmol/L (21.0-32.0); CHLORIDE - SERUM 106 mmol/L (98-107); CHOLESTEROL, TOTAL 137 mg/dL (0-200); CREATININE - SERUM 1.1 mg/dL (0.6-1.3); GLUCOSE 88 mg/dL (74-106); PHOSPHOROUS 3.1 mg/dL (2.5-4.9); POTASSIUM - SERUM 4.4 mmol/L (3.5-5.1); SODIUM 139 mmol/L (136-145); T4 THYROXIN - FREE 1.14 ng/dL (0.76-1.46); THYROID STIMULATING HORMONE 1.31 uIU/mL (0.36-3.74); UREA NITROGEN 24 mg/dL (7-18); URIC ACID 4.7 mg/dL (2.6-7.2); eGFR NON AFRICAN AMERICAN 76 mL/min (90-120)
[2017-10-13 10:26] LABS: APPEARANCE CLEAR (CLEAR); BILIRUBIN NEGATIVE (NEGATIVE); COLOR DK YELLOW (YELLOW); GLUCOSE NEGATIVE (NEGATIVE); KETONE NEGATIVE (NEGATIVE); NITRITE NEGATIVE (NEGATIVE); PROTEIN NEGATIVE (NEGATIVE); RED CELLS - URINE RARE /hpf (0-5); SPECIFIC GRAVITY 1.015 (1.005-1.020); UROBILINOGEN NORMAL (NORMAL); WHITE CELLS - URINE 0-5 /hpf (0-5)
[2017-10-13 10:27] LABS: BACTERIA FEW /hpf (NONE SEEN); EPITHELIAL CELLS RARE /hpf (0-5); MUCUS >1+ /lpf (NONE SEEN)
[2017-10-13 11:09] LABS: COLD SCREEN @ 4 DEGREES NEGATIVE (NEGATIVE); COLD SCREEN ROOM TEMP NEGATIVE (NEGATIVE)
[2017-10-14] VITALS (23 sets, daily range): BP systolic 90–110; BP diastolic 38–61; BMI 29.0; BMI 25.6
[2017-10-14 09:50] LABS: PLT FUNCT.(P2Y12) PLAVIX 190 PRU (194-418)
--- NOTE | 2017-10-14 11:34 | NUR ---
TISSUE FROM MITRAL VALVE SENT TO LAB FOR CULTURES
[2017-10-14 14:14] LABS: HEMATOCRIT 39.3 % (42.0-54.0); HEMOGLOBIN 13.3 g/dL (13.5-17.5); MCH 30.7 pg (26.0-34.0); MCHC 33.8 g/dL (31.0-37.0); MCV 90.8 fL (80.0-100.0); MEAN PLATELET VOLUME 10.5 fL (7.4-10.4); RBC 4.33 10x6/uL (4.20-6.10); RDW 13.6 % (11.5-14.5); WBC 32.8 10x3/uL (4.8-10.8)
[2017-10-14 14:20] LABS: CALC OSMOLALITY 290 mosm/kg (275-300); CALCIUM 7.7 mg/dL (8.5-10.1); CARBON DIOXIDE 26.6 mmol/L (21.0-32.0); CHLORIDE - SERUM 108 mmol/L (98-107); POTASSIUM - SERUM 3.8 mmol/L (3.5-5.1); SODIUM 143 mmol/L (136-145); UREA NITROGEN 23 mg/dL (7-18); eGFR NON AFRICAN AMERICAN 85 mL/min (90-120)
[2017-10-14 14:21] LABS: APTT 39.5 SECONDS (22.8-39.4); INR 1.21 (0.85-1.17); PROTIME 14.9 SECONDS (11.6-15.0)
[2017-10-14 14:25] LABS: GLUCOSE 138 mg/dL (74-106)
--- NOTE | 2017-10-14 14:45 | NUR ---
RECIEVED PT FROM THE OR. INTUBATED AND SEDATED FROM ANESTHESIA. RIGHT IJ SWAN R DLSC. OGT REINSERTED WITH 16 ROMANSH AND PLACEMENT COMFIRMED ON CXR. TPM DDD RATE 100. CT X 2. BLOODY DRAINAGE NOTED. PANCHAL PATENT WITH Q 1 HR OUTPUTS. TEMP 36.5 C. SCD AND TEDS ON.
--- NOTE | 2017-10-14 17:00 | NUR ---
ON SIMV RATE 6 FIO2 40 PERCENT. WILL CONTINUE TO WEAN PER PROTOCOL
--- NOTE | 2017-10-14 18:00 | NUR ---
ABGS OBTAINED AND CALLED TO DR GARZA. CARDIAC OUTPUT AT TIME 10.0. PRIMACORE DECREASED TO 0.3 MCG/KG/MIN.
--- NOTE | 2017-10-14 19:00 | NUR ---
ORAL CARE DONE
--- NOTE | 2017-10-14 19:15 | NUR ---
SHIFT ASSESSMENT COMPLETED. SEE ASSESSMENT FLOWSHEET FOR DETAILS. ON VENT, SWITCHED TO CPAP PER Igor CORRIGAN. ABLE TO FOLLOW COMMANDS AND ANSWER QUESTIONS BY SHAKING HEAD "YES" AND "NO". PACED ON THE MONITOR AT 100 BPM. 1:1 NURSING CARE IN PROGRESS.
--- NOTE | 2017-10-14 20:15 | NUR ---
IN FOR VISITATION. INFORMED HE IS ON CPAP AND NEXT IS TO DO TEST AND DRAW ABG'S TO SEE IF ABLE TO PULL THE TUBE. VERBALIZED UNDERSTANDING. BEGAN TO COUGH AND SHOOK HEAD "YES" TO FEELING SICK AT HIS STOMACH. OG TUBE PLACED TO CONTINUOUS SUCTION. MINIMAL AMT OF BLOODY COLORED GASTRIC SECRETIONS BEING REMOVED. NO EMESIS AROUND OG TUBE. WILL MONITOR.
--- NOTE | 2017-10-14 21:20 | NUR ---
EXTUBATED TO 5LPM/NC PER SHEKHAR WITH R.T. OGT ALSO REMOVED. TOLERATED WELL. WANTING WATER AND SOMETHING FOR PAIN. WILL SET UP FRONT LINE SUPERVISOR. B/P ON LOW 85-95 CUURENTLY ON A-LINE. WILL MONITOR.
[2017-10-14 21:25] LABS: HEMATOCRIT 25.2 % (42.0-54.0); HEMOGLOBIN 8.6 g/dL (13.5-17.5); MCH 30.6 pg (26.0-34.0); MCHC 34.1 g/dL (31.0-37.0); MCV 89.7 fL (80.0-100.0); MEAN PLATELET VOLUME 10.3 fL (7.4-10.4); PLATELET COUNT 74 10x3/uL (130-400); RBC 2.81 10x6/uL (4.20-6.10); RDW 13.5 % (11.5-14.5); WBC 14.9 10x3/uL (4.8-10.8)
--- NOTE | 2017-10-14 21:30 | NUR ---
DR. GARZA CALLED AND MADE AWARE OF CLOTS NOTED IN POSTERIOR CHEST TUBE AND NOW DUMPING MORE. H&H/PLTS MADE AWARE ON ABG AND SERUM LEVELS. CURRENT HEMODYNAMIC INFO INFORMED OF. TEMP ELEVATED AND TYLENOL GIVEN INFORMED. INFORMED OF RECENT EXTUBATION. WANTS TO CONTINUE TO MONITOR.
[2017-10-14 22:04] LABS: PLATELET ESTIMATE DECREASED
--- NOTE | 2017-10-14 23:05 | NUR ---
REASSESSMENT COMPLETED. SEE ASSESSMENT FLOWSHEET. REPORTS PAIN TO INCISION BUT CLOSES EYES WHEN NOT STIMULATED. SIP OF WATER GIVEN. MORPHINE WARP STARTER PRESSED SINCE SBP 100 ON A-LINE. WILL MONITOR. 1:1 NURSING CARE IN PROGRESS.
[2017-10-15] VITALS (92 sets, daily range): BP systolic 87–128; BP diastolic 39–88; BMI 31.9
--- NOTE | 2017-10-15 00:15 | NUR ---
DOES WANT TO TURN NOW. TURNED TO RT SIDE WITH PILLOW SUPPORT. GOOD COUGH EFFORT NOTED. WILL MONITOR. 1:1 NURSING CARE IN PROGRESS.
--- NOTE | 2017-10-15 00:45 | NUR ---
BEGAN TO COUGH AND SPIT UP/VOMITED WATER. IV REGLAN GIVEN-SEE EMAR. USED HIS YANKEUR WHEN IT HAPPENED TO SUCK UP EMESIS HIMSELF. WILL MONITOR.
--- NOTE | 2017-10-15 01:10 | NUR ---
CRITICAL LOW HEMOGLOBIN ON ABG RESULTS. SENT DOWN SERUM H & H TO COMPARE RESULTS FROM 2099 TO SEE IF TRANSFUSION IS NECESSARY. TURNED TO SUPINE POSITION PER HIS REQUEST. WILL MONITOR.
[2017-10-15 01:21] LABS: HEMATOCRIT 24.4 % (42.0-54.0); HEMOGLOBIN 8.3 g/dL (13.5-17.5)
--- NOTE | 2017-10-15 01:33 | NUR ---
DR. GARZA CALLED AND MADE AWARE OF CURRENT B/P 88 SYSTOLIC AND CURRENT HEMODYNAMIC INFO. INFORMED OF NO CHANGE IN IV DRIPS. CURRENT H & H UPDATED TO HIM. NEW ORDERS RECEIVED. CLARIFIED TO CHECK BLOOD SUGAR IN AM. WILL DRAW PT/INR AND SENT TO LAB WILL TRANSFUSING 2 UNITS PRBC'S. WILL MONITOR.
--- NOTE | 2017-10-15 01:50 | NUR ---
1ST UNIT OF PRBC'S STARTED TO RT IJ CVL/SWAN. INFORMED TO LET ME KNOW OF ANY WEIRD FEELINGS, RASH OR TROUBLE BREATHING. VERBALIZED UNDERSTANDING. WILL MONITOR.
[2017-10-15 02:16] LABS: INR 1.63 (0.85-1.17); PROTIME 18.8 SECONDS (11.6-15.0)
--- NOTE | 2017-10-15 02:35 | NUR ---
2ND UNIT OG PRBC'S COMPLETED. AWAITING FFP AND PLATELETS. WILL MONITOR. NO REACTION NOTED THUS FAR. WILL MONITOR. 1:1 NURSING CARE IN PROGRESS.
--- NOTE | 2017-10-15 03:17 | NUR ---
UNIT OG PHERESIS PLATELETS STARTED TO RT IJ CVL. WILL MONITOR.
--- NOTE | 2017-10-15 03:45 | NUR ---
PORTABLE CHEST XRAY COMPLETED. TOLERATED WELL. DENIES TO BE TURNED OR MOVED IN BED. ICE CHIPS GIVEN. FFP UNIT 1 INFUSING. WILL MONITOR.
--- NOTE | 2017-10-15 04:20 | NUR ---
PLEUR-EVAC CANNISTER CHANGED OUT DUE TO POSTERIOR TUBE FULL. WILL MONITOR.
--- NOTE | 2017-10-15 05:00 | NUR ---
SBP REACHED 116. DECREASED LEVOPHED TO 28ML/HR. WILL MONITOR.
--- NOTE | 2017-10-15 06:00 | NUR ---
PANCHAL CATHETER CARE COMPLETED. OLD OOZING OF BROWNISH/BLOODY DRAINAGE NOTED ON SHEET. OBTAINED FROM WAITING ROOM TO VISIT FOR A FEW MINUTES BEFORE SHIFT CHANGE. WILL MONITOR.
[2017-10-15 06:34] LABS: BASOPHILS 0 % (0-2); EOSINOPHILS 0 % (0-7); HEMATOCRIT 26.4 % (42.0-54.0); IMMATURE GRANULOCYTES 0.2 % (0-5); LYMPHOCYTES 4.9 % (15-50); MCH 30.3 pg (26.0-34.0); MCHC 34.1 g/dL (31.0-37.0); MCV 88.9 fL (80.0-100.0); MEAN PLATELET VOLUME 10.4 fL (7.4-10.4); NEUTROPHILS 83.9 % (40-80); RBC 2.97 10x6/uL (4.20-6.10); RDW 14.2 % (11.5-14.5); WBC 13.2 10x3/uL (4.8-10.8)
[2017-10-15 06:43] LABS: PLATELET COUNT 93 10x3/uL (130-400)
[2017-10-15 06:55] LABS: ANION GAP 13.3 mmol/L (8-16); BILIRUBIN - TOTAL 1.63 mg/dL (0.2-1.3); CALCIUM 8.7 mg/dL (8.5-10.1); MAGNESIUM - SERUM 2.7 mg/dL (1.8-2.4); POTASSIUM - SERUM 4.3 mmol/L (3.5-5.1); PROTEIN - SERUM 5.6 g/dL (6.4-8.2)
--- NOTE | 2017-10-15 07:00 | NUR ---
ASSESSMENT COMPLETE PER FLOWSHEET.
[2017-10-15 07:02] LABS: CREATININE - SERUM 1.5 mg/dL (0.6-1.3); PHOSPHOROUS 4.7 mg/dL (2.5-4.9)
[2017-10-15 08:58] LABS: INR 1.44 (0.85-1.17)
--- NOTE | 2017-10-15 10:00 | NUR ---
BATH AND LINEN CHANGED.
--- NOTE | 2017-10-15 15:30 | NUR ---
DRESSING CHANGE COMPLETE.
--- NOTE | 2017-10-15 16:15 | NUR ---
UPDATE GIVEN TO DR GARZA. O2 SAT 91 PERCENT ON 4 LITERS NC SVO2 58. PA 46/25. NEW ORDERS OBTAINED.
[2017-10-15 17:12] LABS: AFB SPECIMEN PROCESSING Tissue Grinding (())
--- NOTE | 2017-10-15 19:30 | NUR ---
REPORT RECIEVED. ASSESSMENT COMPLETED. SEE FLOW SHEET FOR FURTHER DETAILS. TPM IS PACING VMA AND AMA. CHEST TUBES TO 20CM SUCTION WITH NO LEAKS NOTED. 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 PT POSITIONED FOR COMFORT WILL CONTINUE 1 ON 1 NURSING CARE.
--- NOTE | 2017-10-15 21:00 | NUR ---
AT BED SIDE. UPDATE GIVEN. ASSISTED PT IN I.S. WITH A BEST EFFORT OF 1000 ALSO ASSISTED AND ENCOURAGED COUGH AND DEEP BREATHING. PT POSITIONED FOR COMFORT. WILL CONTINUE 1 ON 1 NURSING CARE.
--- NOTE | 2017-10-15 23:00 | NUR ---
REASSESSMENT COMPLETED AT THIS TIME. NO ACUTE CHNAGES. SEE FLOW SHEET FOR FURTHER DETAILS. PT POSITIONED FOR COMFORT AND ENCOURAGED TO DO I.S. AND DEEP BREATH AND COUGH. WILL CONTINUE 1 ON 1 NURSING CARE.
[2017-10-16] VITALS (59 sets, daily range): BP systolic 83–123; BP diastolic 40–69; Ht 177.8 cm; Wt 100.5 kg
--- NOTE | 2017-10-16 01:00 | NUR ---
PT RESTING WITH EYES CLOSED. NO SIGNS OF DISTRESS. WILL CONTINUE TO TITRATE LEVOPHED. PT POSITIONED FOR COMFORT. WILL CONTINUE 1 ON 1 NURSING CARE.
--- NOTE | 2017-10-16 03:00 | NUR ---
REASSESSMENT COMPLETED. NO ACUTE CHNAGES. SEE FLOW SHEET FOR FURTHER DETAILS. PT POSITIONED FOR COMFORT. WILL CONTINUE 1 ON 1 NURSING CARE.
--- NOTE | 2017-10-16 05:00 | NUR ---
PT RESTING WITH NO SIGNS OF DISTRESS. PT ASSISTED TO COUGH AND DEEP BREATH. PT POSITIONED FOR COMFORT. WILL CONTINUE 1 ON 1 NURSING CARE.
[2017-10-16 06:29] LABS: BASOPHILS 0 % (0-2); EOSINOPHILS 0 % (0-7); HEMATOCRIT 26.3 % (42.0-54.0); HEMOGLOBIN 8.9 g/dL (13.5-17.5); IMMATURE GRANULOCYTES 0.1 % (0-5); LYMPHOCYTES 3.2 % (15-50); MCH 30.7 pg (26.0-34.0); MCHC 33.8 g/dL (31.0-37.0); MCV 90.7 fL (80.0-100.0); MEAN PLATELET VOLUME 10.3 fL (7.4-10.4); MONOCYTES 9.5 % (2-11); NEUTROPHILS 87.2 % (40-80); PLATELET COUNT 75 10x3/uL (130-400); RDW 14.6 % (11.5-14.5); WBC 14.6 10x3/uL (4.8-10.8)
--- NOTE | 2017-10-16 06:49 | NUR ---
ORAL CARE DONE WITH PERIDEX
[2017-10-16 06:50] LABS: ALBUMIN 3.4 g/dL (3.4-5.0); ANION GAP 9.7 mmol/L (8-16); BILIRUBIN - TOTAL 1.19 mg/dL (0.2-1.3); CALCIUM 8.4 mg/dL (8.5-10.1); CARBON DIOXIDE 30.3 mmol/L (21.0-32.0); CREATININE - SERUM 1.4 mg/dL (0.6-1.3); PROTEIN - SERUM 5.8 g/dL (6.4-8.2)
--- NOTE | 2017-10-16 09:40 | NUR ---
* Is the patient Alert and Oriented? Yes 0 * How many steps to enter\exit or inside your home? 2 0 * PCP Dr. Andrew Burk 0 * Pharmacy [facility] 0 * Preadmission Environment Home with Family 0 * ADLs Independent 0 * Equipment PICC Line Supplies 0 * List name and contact numbers for known caregivers / representatives who currently or will assist patient after discharge: Spouse - Ange [phone] 0 * Community resources currently utilized Infusion Services 0 * Please name any agencies selected above. [facility] 0 * Additional services required to return to the preadmission environment? No 0 * Can the patient safely return to the preadmission environment? Yes 0 * Has this patient been hospitalized within the prior 30 days at any hospital? Yes Patient Name: GABRIEL MAYO Admission Status: Elective Accout number: [id number] Admission Date: 10-14-2017 : 1970 Admission Diagnosis:COMB RHEUMATIC DISORD OF MITRAL, AORTIC AND TRICUSPID V Attending: CHARLOTTE GARZA Current LOS: 2 Anticipated DC Date: 10-21-2017 Planned Disposition: Home Primary Insurance: Virtual 3-D Display for Smartphones [facility] Discharge Planning Comments: CM met with patient & spouse to assess dc plans/needs. Patient states he lives at home with his , Ange, who is a HD nurse. He was discharged from [facility] 09/28 following a two week hospitalization. He went home to complete a 4 week course of IV abx before readmitting for this surgery. Prior to first hospitalization, he reports he was fully independent with all ADL's & IADL's, working multimedia artist (self employed in construction). At dc, he plans to return home with his . CM will follow & assist with any DC needs. Commercial Interior Designer: Ida Miller
--- NOTE | 2017-10-16 10:00 | NUR ---
LINES AND TUBES DC'D WITH DR. GARZA. MANUAL PRESSURE APPLIED TO RIGHT WRITST AND RIGHT IJ TIMES 5 MINUTES EACH. CLEAR DRESSINGS APPLIED. PT AND INSTRUCTED ON S/SX TO REPORT.
--- NOTE | 2017-10-16 10:16 | NUR ---
Nutrition Follow Up: Pt is eating 50% meal avg on a regular diet. +BM 10/14/17. Meds and labs reviewed. Rec continue current diet as tolerated. Will continue to honor food preferences. RD following.
--- NOTE | 2017-10-16 10:20 | NUR ---
COMPLETE BATH GIVEN. BED LINENS CHANGED.
--- NOTE | 2017-10-16 11:20 | NUR ---
UP TO CHAIR PER P.T.
[2017-10-16 13:14] LABS: FUNGUS STAIN Final report (())
--- NOTE | 2017-10-16 14:00 | NUR ---
AMBULATED WITH P.T. APPROX 65'.
--- NOTE | 2017-10-16 17:07 | NUR ---
REMAINS UP IN CHAIR WITH AT BEDSIDE.
--- NOTE | 2017-10-16 18:57 | NUR ---
ORAL CARE PERFORMED WITH PERIDEX ORDERED
--- NOTE | 2017-10-16 19:30 | NUR ---
SHIFT ASSESSMENT COMPLETED. SEE ASSESSMENT FLOWSHEET FOR DETAILS. VISITORS AT BEDSIDE X3. NO PAIN AT THIS TIME, ONLY WITH COUGHING AND MOVEMENT. AV PACED ON THE MONITOR-DDD; 80; AMA OF 10; VMA OF 10. WILL MONITOR.
--- NOTE | 2017-10-16 21:27 | NUR ---
C/O URGENCY OF URINE. ONLY URINATES 50-75ML AT A TIME. INFORMED THIS MAY BE NORMAL SINCE HE HAD PANCHAL REMOVED TODAY. WILL BLADDER SCAN BLADDER TO BE SURE RETENTION IS NOT AN ISSUE. AT BEDSIDE. WILL MONITOR.
--- NOTE | 2017-10-16 21:40 | NUR ---
BLADDER SCANNER USED. APPROX. 450ML NOTED IN BLADDER. WANTS TO SIT ON COMMODE. UP TO RESTROOM AND NURSES' HAT PLACED IN TOILET. NEW PINK PAD APPLIED TO BEDDING. WILL MONITOR.
--- NOTE | 2017-10-16 22:00 | NUR ---
WILL CALL DR. GARZA DUE TO PAINFUL BLADDER SPASMS IF CONTINUES AND DOES NOT RESPOND TO TEXT. 2223: DR. GARZA CALLED. NO ANSWER BUT THEN REPORTS HE URINATED MORE AND IS HAVING LESS PAIN AND LESS SPASMS. ENCOURAGED TO NOT DRINK CAFFINATED DRINKS AND DRINK WATER ONLY TO HELP FLUSH HIS BLADDER. WILL MONITOR.
--- NOTE | 2017-10-16 23:30 | NUR ---
EYES CLOSED. NO ACUTE DISTRESS NOTED. WILL MONITOR.
[2017-10-17] VITALS (32 sets, daily range): BP systolic 97–143; BP diastolic 51–85
--- NOTE | 2017-10-17 00:10 | NUR ---
B/P KEEPS TAKING OVER AND OVER AGAIN WITHOUT GIVING A DECENT READING. CHANGED OUT CUFF, AND ARM THEN SWITCHED B/P CORD AND NOW WORKING APPROPRIATELY. 50ML EMPTIED OF URINE PER . ICE WATER GIVEN. REASSESSMENT COMPLETED. SEE ASSESSMENT FLOWSHEET. WILL MONITOR.
--- NOTE | 2017-10-17 02:05 | NUR ---
BREATHING TREATMENT/I.S. BEING COMPLETED. WANTING TO TURN ON HIS SIDE. TURNED SLIGHTLY TO LEFT SIDE WITH 2 PILLOWS. URINAL REMAINS BETWEEN HIS LEGS. REPORTED 125ML OUT OF URINE EARLIER. WILL MONITOR.
--- NOTE | 2017-10-17 03:48 | NUR ---
NEW CUP OF WATER GIVEN PER REQUEST. TEMP ASSESSED. DENIES NEEDS AT PRESENT. WILL MONITOR.
--- NOTE | 2017-10-17 04:40 | NUR ---
TAKEN OVER TO [facility] DEPT VIA WHEELCHAIR FOR PA &LAT XRAY. TOLERATED WELL. OFF O2 AND AFTER EXERTION TO BATHROOM AND BACK O2 SATS 85%. PLACED BACK ONTO 2LPM/NC. TOTAL BED LINEN CHANGE COMPLETED. GOWN CHANGED. AMBULATED FROM RESTROOM TO BEDSIDE CHAIR TO SIT UP. ALL IV TUBING AND BAGS CHANGED OUT EXCEPT MORPHINE-NOT EMPTY YET. I & O'S COMPLETED. WILL MONITOR.
--- NOTE | 2017-10-17 06:40 | NUR ---
ORAL CARE DONE WITH PERIDEX
--- NOTE | 2017-10-17 06:40 | NUR ---
AM LABS DRAWN FROM RT SC CVL WITHOUT DIFFICULTY. BACK IN BED AFTER USING RESTROOM. BREATHING TREATMENT IN PROGRESS VIA BIPAP. WILL MONITOR.
[2017-10-17 06:51] LABS: HEMATOCRIT 27.7 % (42.0-54.0); HEMOGLOBIN 9.3 g/dL (13.5-17.5); MCH 30.8 pg (26.0-34.0); MCHC 33.6 g/dL (31.0-37.0); MCV 91.7 fL (80.0-100.0); MEAN PLATELET VOLUME 10.7 fL (7.4-10.4); RBC 3.02 10x6/uL (4.20-6.10); WBC 16.6 10x3/uL (4.8-10.8)
--- NOTE | 2017-10-17 07:15 | NUR ---
RECEIVED PT FOR CARE. ASSESSMENT COMPLETED. VSS AT THIS TIME. UP TO CHAIR WITHOUT ASSIST. CALL LIGHT WITHIN REACH. PT'S AT BEDSIDE. NO OTHER NEEDS AT THIS TIME.
[2017-10-17 07:21] LABS: ALBUMIN 3.2 g/dL (3.4-5.0); ANION GAP 10.8 mmol/L (8-16); BILIRUBIN - TOTAL 1.27 mg/dL (0.2-1.3); CALCIUM 8.7 mg/dL (8.5-10.1); CARBON DIOXIDE 29.5 mmol/L (21.0-32.0); CREATININE - SERUM 1.2 mg/dL (0.6-1.3); POTASSIUM - SERUM 4.3 mmol/L (3.5-5.1); PROTEIN - SERUM 6.2 g/dL (6.4-8.2)
--- NOTE | 2017-10-17 09:00 | NUR ---
PHYSICAL THERAPY AT BEDSIDE. PT AMBULATED APPROX 275 FT. TOLERATED WELL. ASSISTED BACK TO CHAIR. CALL LIGHT WITHIN REACH.
--- NOTE | 2017-10-17 13:48 | NUR ---
PHYSICAL THERAPY AT BEDSIDE. PT AMBULATED APPROX 300 FT. TOLERATED WELL.
--- NOTE | 2017-10-17 18:00 | NUR ---
DRESSING CHANGED TO MIDLINE STERNUM DUE TO FALLING OFF OF PT WHEN SITTING UP. DRESSING TO UPPER ABDOMEN PACER WIRES CHANGED PER MD ORDERS. PT TOLERATED WELL. BACK IN BED. CALL LIGHT WITHIN REACH.
--- NOTE | 2017-10-17 19:30 | NUR ---
SHIFT ASSESSMENT COMPLETED. SEE ASSESSMENT FLOWSHEET. AV PACED AT 80 ON THE MONITOR. O2 @ 1LPM/NC. AT BEDSIDE. DOPAMINE INFUSING TO RT SC CVL @ 4MCG/KG/MIN. TITRATED TO 3.8 MCG. WILL MONITOR.
--- NOTE | 2017-10-17 20:50 | NUR ---
2100 MEDS ADMINISTERED. BEGAN TO GO INTO AN AFIB/AFLUTTER RHYTHM IN THE 100'S. B/P NOT AFFECTED. WILL INFORM DR. GARZA AND OBTAIN 12-LEAD EKG. 2127: HARD TO GET 12-LEAD EKG STICKERS TO STICK ON BODY DUE TO SWEATING. FINALLY ABLE TO OBTAIN READING. DR. GARZA MADE AWARE OF 12-LEAD EKG READING AND ASSESSMENT OF RHYTHM INTERPRETATION. CHANGED TEMP PACER TO DDD 80; 10; 10 AND DECREASED V-SENSITIVITY PER DR. GARZA'S ORDER. V-PACED NOW AT APPROX. 106-107 BEATS/MIN. WILL MONITOR.
--- NOTE | 2017-10-17 22:40 | NUR ---
BREATHING TREATMENT IN PROGRESS VIA BIPAP MASK. NO ACUTE DISTRESS NOTED. WILL MONITOR.
--- NOTE | 2017-10-17 23:15 | NUR ---
CAME TO DESK TO COME LOOK AT SOMETHING ON HIM. BLISTER ABOUT THE SIZE OF A QUARTER NOTED TO RIGHT LOWER SIDE OF ABDOMEN. DID NOT WANT TO PLACE ANYTHING OVER IT AT THIS TIME. PILLOWCASE PLACED AROUND IT IN CASE OF IT RUPTURING. REASSESSMENT COMPLETED. SEE ASSESSMENT FLOWSHEET. WILL MONITOR.
[2017-10-18] VITALS (29 sets, daily range): BP systolic 91–123; BP diastolic 55–77
--- NOTE | 2017-10-18 00:53 | NUR ---
PAIN PILL GIVEN PER REQUEST. BACK FROM RESTROOM. ONLY VOIDED. NO BM. IV PROTONIX ALSO GIVEN ORDERED. WILL MONITOR.
--- NOTE | 2017-10-18 02:00 | NUR ---
MOVED FAN PER HIS REQUEST WHEN DOING ROUNDS. NO OTHER NEEDS AT THIS TIME. WILL MONITOR.
--- NOTE | 2017-10-18 02:47 | NUR ---
REASSESSMENT COMPLETED. SEE ASSESSMENT FLOWSHEET. I.S. DONE WITH Igor RODARTE AFTER BREATHING TREATMENT. TEMP ASSESSED. V-PACED ON THE MONITOR. WILL MONITOR.
--- NOTE | 2017-10-18 04:10 | NUR ---
AMBULATED TO RESTROOM BEFORE BEING TAKEN DOWN TO RAD DEPT. ORANGE COLORED URINE WITH DRIED, DARK COLORED FLAKY SEDIMENT COVERING BOTTOM OF THE NURSES' HAT IN TOILET AFTER URINATING. FELT RELIEF. AMBULBUATED TO WHEELCHAIR. TOELRATED XRAY WITHOUT DIFFICULTY. BACK TO ROOM AND TO RESTROOM. 50ML MORE URINATED AND NO SEDIMENT NOTED. REQUESTED PAIN PILL. PILL GIVEN, SEE EMAR FOR EXACT TIME. WILL MONITOR.
--- NOTE | 2017-10-18 06:10 | NUR ---
AM LABS DRAWN FROM RT SC CVL. ASSISTED TO AMBULATE TO RESTROOM. ORANGE COLORED URINE WITH VERY SMALL SEDIMENT NOTED IN NURSES HAT. AMBULATED THEN TO BEDSIDE CHAIR. COMPLETE LINEN CHANGE TO BED. SHEETS WET FROM DIAPHORESIS. WILL MONITOR.
[2017-10-18 06:49] LABS: HEMATOCRIT 27.7 % (42.0-54.0); HEMOGLOBIN 9.1 g/dL (13.5-17.5); MCH 29.9 pg (26.0-34.0); MCHC 32.9 g/dL (31.0-37.0); MCV 91.1 fL (80.0-100.0); MEAN PLATELET VOLUME 10.3 fL (7.4-10.4); RBC 3.04 10x6/uL (4.20-6.10); RDW 13.8 % (11.5-14.5); WBC 13.3 10x3/uL (4.8-10.8)
[2017-10-18 07:07] LABS: ALBUMIN 2.9 g/dL (3.4-5.0); ALKALINE PHOSPHATASE 46 U/L (46-116); ALT (SGPT) 44 U/L (10-68); BILIRUBIN - TOTAL 1.03 mg/dL (0.2-1.3); CALC OSMOLALITY 270 mosm/kg (275-300); CALCIUM 8.2 mg/dL (8.5-10.1); CHLORIDE - SERUM 97 mmol/L (98-107); GLUCOSE 110 mg/dL (74-106); POTASSIUM - SERUM 3.8 mmol/L (3.5-5.1); PROTEIN - SERUM 6.1 g/dL (6.4-8.2); SODIUM 133 mmol/L (136-145); UREA NITROGEN 24 mg/dL (7-18); eGFR NON AFRICAN AMERICAN 85 mL/min (90-120)
--- NOTE | 2017-10-18 13:23 | HP ---
PATIENT: GABRIEL MAYO MEDICAL RECORD: [id number] ACCOUNT: [id number] LOCATION:[facility]02 : [birth year] ADMISSION DATE: 10/14/17 HISTORY AND PHYSICAL EXAMINATION NameGABRIEL MAYO (47yo, M) ID# [id number]. Date/Time10/08/2017 10:30MYYOW1970[facility] ClinicProviderEDFILI GARZA MDInsuranceMed Primary: [employer] Insurance # : [id number] Policy/Group # : [id number] PCP : LEWIS PRETYT Referring Provider Name : LEWIS PRETTY Employer Name : [employer] Prescription: DSTPS - Member is eligible. Chief Complaint Followup: Mitral valve vegetations Followup: Mitral valve regurgitation following MR, preop visit Patient's Care Team Primary Care Provider (): LEWIS PRETTY: [address] [facility] [place] [address], , Referring Provider (): LEWIS PRETTY: [address] [place] [address], , Patient's Pharmacies [facility] ([facility]): [address] [facility] [place] [address], , Vitals BP:106/70 sitting R arm 10/08/2017 10:13 amBP Cuff Size:adult 10/08/2017 10:13 amHR:68,REG 10/08/2017 10:13 amHt:5 ft 10 in 10/08/2017 10:11 amWt:200 lbs 10/08/2017 10:14 amNotes:NO BETTER, NO WORSE. mAINTAINS MIDLINE IV ACCESS TO LUE. 10/08/2017 10:14 amBMI:28.7 10/08/2017 10:14 amAllergies Reviewed Allergies NKDAMedications Reviewed Medications benzonatate 200 mg joutlhm16/04/17 filledArg[facility] Health Systemsfluticasone 50 mcg/actuation nasal spray,tlhhpcusbp69/11/16 filledArgus Health Systemsfurosemide 40 mg rbtnla47/04/17 filledArgus Health Systemsipratropium bromide 42 mcg (0.06 %) nasal spray09/05/16 filledArg[facility] Health Systemsitraconazole 100 mg irrgkzj62/04/17 filledArg[facility] BrainLAB Systemsmeloxicam 7.5 mg /31/17 filledArgus BrainLAB SystemsMotion Relief (meclizine)09/15/17 Jason Reddyolmesartan 20 mg nvbtzi10/04/17 filledArgus BrainLAB SystemsProAir HFA 90 mcg/actuation aerosol uddbntv03/30/17 filledArgus BrainLAB Systemstestosterone cypionate 200 mg/mL intramuscular oil08/29/17 filledArgus BrainLAB SystemsZyrTEC 10 mg capsule Take 1 capsule(s) every day by oral route.09/15/17 Jason medina vitamin Problems Reviewed Problems Mitral valve vegetations - Onset: 10/06/2017 Mitral valve regurgitation - Onset: 10/06/2017 Family History Discussed Family History Paternal Grandmother- Heart diseaseUnspecified Relation- Diabetes mellitusSocial History HISTORY AND PHYSICAL [id number] GABRIEL MAYO Discussed Social History General Marital status: Exercise level: Heavy Smoking Status: Never smoker Non-smoker Alcohol intake: None Caffeine intake: Moderate Surgical History Reviewed Surgical History Past Medical History Discussed Past Medical History Heart Murmur: Y Documents for Discussion N/A Screening None recorded. HPI Valvular Heart Disease Reported by patient. Context: mitral insufficiency Mitral Insufficiency: severe endocarditis mitral regurgitation ROS Patient reports shortness of breath when walking, shortness of breath when lying down, and known heart murmur but reports no chest pain, no arm pain on exertion, and no palpitations. He reports cough and shortness of breath but reports no wheezing and no coughing up blood. He reports no fever, no night sweats, no significant weight gain, no significant weight loss, and no exercise intolerance. He reports no dry eyes, no irritation, and no vision change. He reports no difficulty hearing and no ear pain. He reports no frequent nosebleeds and no nose/sinus problems. He reports no sore throat, no bleeding gums, no snoring, no dry mouth, no mouth ulcers, no oral abnormalities, and no teeth problems. He reports no jugular vein distension and no swollen glands . He reports no abdominal pain, no vomiting, normal appetite, no diarrhea, not vomiting blood, no nausea, and no constipation. He reports no incontinence, no difficulty urinating, no hematuria, and no increased frequency. He reports no muscle aches, no mus c le weakness, no arthralgias/joint pain, no back pain, and no swelling in the extremities. He reports no abnormal mole, no jaundice, and no rashes. He reports no loss of consciousness, no weakness, no numbness, no seizures, no dizziness, and no headaches. H e reports no depression, no sleep disturbances, feeling safe in relationship, and no alcohol abuse. He reports no fatigue. He reports no swollen glands and no bruising. He reports no runny nose, no sinus pressure, no itching, no hives, and no frequent sne ezing. ROS as noted in the HPI Physical Exam Patient is a 47-year-old male. Constitutional: General Appearance: healthy-appearing, well-nourished, and well-developed. Level of Distress: NAD. Ambulation: ambulating normally. Psychiatric: Mental Status: normal mood and affect and active and alert. Orientation: to time, place, and person. Head: Head: atraumatic. HISTORY AND PHYSICAL [id number] GABRIEL MAYO Eyes: Lids and Conjunctivae: no discharge or pallor and non-injected. Pupils: PERRLA. EOM: EOMI. Sclerae: non-icteric. ENMT: Ears: no lesions on external ear. Hearing: no hearing loss. Nose: no lesions on external nose. Lips, Teeth, and Gums: no mouth or lip ulcers or bleeding gums and normal dentition. Oropharynx: no erythema or exudates and moist mucous membranes. Neck: Neck: supple, FROM, trachea midline, and no masses. Lymph Nodes: no cervical LAD or supraclavicular LAD. Thyroid: no enlargement or nodules and non-tender. Lungs: Respiratory effort: no dyspnea. Auscultation: no wheezing, rales/crackles, or rhonchi and breath sounds normal, good air movement, and CTA except as noted. Cardiovascular: Heart Auscultation: normal S1 and S2, no rubs or gallops, and RRR and murmur (3/6 blowing holosystolic -Radiates to the lung looney). Abdomen: Inspection and Palpation: no tenderness, guarding, masses, rebound tenderness, or CVA tenderness and soft and non-distended. Liver: non-tender and no hepatomegaly. Spleen: non-tender and no splenomegaly. Musculoskeletal:: Motor Strength and Tone: normal a nd normal tone. Joints, Bones, and Muscles: no contractures, malalignment, tenderness, or bony abnormalities and normal movement of all extremities. Extremities: no cyanosis or edema. Neurologic: Gait and Station: normal gait and station. Cranial Nerves: grossly intact. Sensation: grossly intact. Coordination and Cerebellum: no tremor. Skin: Inspection and palpation: no rash, lesions, ulcer, or jaundice and good turgor; No peripheral lesions, emboli, or splinter hemorrhages. No conjunctival petechiae.. Nails: normal. Back: Thoracolumbar Appearance: normal curvature. Assessment / Plan endocarditis 1. Mitral valve vegetations I33.0: Acute and subacute infective endocarditis 2. Mitral valve regurgitation I34.0: Nonrheumatic mitral (valve) insufficiency HEART VALVE DISEASE: CARE INSTRUCTIONS MITRAL VALVE REGURGITATION: CARE INSTRUCTIONS Discussion Notes severe mitral regurgitation. I have discussed his disease process with him in detail as well as the alternative methods of treatment we discussed mitral valve repair and replacement including the expected benefits and risks which include bleeding, infection, stroke, , and the imponderables. He understands all of the above and wishes to proce ed with planned surgery HISTORY AND PHYSICAL [id number] GABRIEL MAYO EDWARD MD at 1323 CC: [id number] DICTATION DATE: 10/08/17 1000 CAUSTICS LOADER: YAMILEX 10/12/17 1047 ADM IN [place] [id number] [place] [id number]
--- NOTE | 2017-10-18 13:23 | OP ---
PATIENT NAME: GABRIEL MAYO MEDICAL RECORD: [id number] :68 LOCATION:[facility] D.CV02 ADMISSION DATE:10/14/17 SURGEON: KIERAN MAHARAJ MD DATE OF OPERATION: 10/14/2017 SURGEON: Kieran Maharaj MD ANESTHESIA: General endotracheal. ANESTHESIOLOGIST: You Goodrich MD OPERATION PERFORMED: 1. Mitral valve repair. 2. Quadrangular resection of P2. 3. Sliding valvuloplasty. 4. Annuloplasty with a 30-mm [employer] saddle ring. 5. Malachi chordal repair of the posterior leaflet with Woodruff-Rey chordae tendineae. PREOPERATIVE DIAGNOSIS: Severe mitral regurgitation. POSTOPERATIVE DIAGNOSIS: Severe mitral regurgitation secondary to flail P2 leaflet. INDICATION FOR OPERATION: Severe mitral regurgitation. FINDINGS AT OPERATION: Flail P2 leaflet secondary to ruptured chordae tendineae. Tissue cultures were taken; however, the valve did not look infective. ESTIMATED BLOOD LOSS: Cell Saver was used. DESCRIPTION OF PROCEDURE: After informed consent, adequate preoperative medication evaluation, the patient was brought to the operating room, placed on the table in the supine position. After induction of general endotracheal anesthesia and application of appropriate monitoring devices, the chest, neck, abdomen, and both legs were prepped and draped in a sterile field, utilizing Betadine scrub, alcohol and Betadine solution and Betadine-impregnated drape was also used. A transesophageal echo was performed, the P2 flail leaflet was identified. The remainder of the structures were examined and measured. The patient after being prepped and draped, underwent a median sternotomy and dissection carried down to the fascia. Hemostasis maintained with electrocautery. Sternum was divided. Innominate vein was identified and protected. The pericardium was opened. The pericardial well was formed by utilizing pericardial traction sutures. The patient was given a calculated dose of heparin, cannulated in a standard fashion utilizing 1 aortic, 2 atrial cannulas with caval tapes, myocardial cooling pen and temperature probe were also used. A retrograde catheter was placed in the coronary sinus. The patient was cooled to 32 degrees centigrade. A cross clamp was placed just proximal to the aortic cannula and the patient was given cardioplegic solution through the aortic root. The patient was given a cold induction and cold maintenance. The patient was given cold intermittent cardioplegic solution throughout the procedure through the root or retrograde combination. Frank's groove was opened after dissection and the valve examined. The valve was difficult to OPERATIVE REPORT [id number] GABRIEL MAYO due to his anatomy. The P2 leaflet was obviously flail and the edges of the more normal leaflets were marked with 5-0 Prolene sutures. The quadrangular resection was performed and the annulus plicated with an interrupted pledgeted 2-0 Ethibond suture. The base of the posterior leaflet was then incised clockwise and counterclockwise and the leaflet reapproximated with 5-0 Ethibond suture and the annulus reanastomosed with 5-0 Ethibond suture, circumferential annuloplasty sutures of 2-0 Ethibond were placed and the valve sized to a 30 [address] Jamie annuloplasty ring. The sutures were placed through the sewing ring. It was lowered into position and secured. The valve was tested and there was no leakage. A vent was placed across the valve. The left atrium was closed in 2 layers utilizing running 3-0 Prolene suture. The patient was rewarmed and given warm cardioplegic reperfusion and controlled reperfusion. The vent was removed and the atrium secured. The patient was rewarmed to 37 degrees centigrade. Two atrial and 2 ventricular pacing wires were placed on the heart and brought through the epigastric area. The patient was weaned from cardiopulmonary bypass. After being stable off bypass, he was given calculated dose of protamine to reverse the heparin. Hemostasis was achieved. A #40 right angle and #36 chest tubes were brought in through the epigastric area and placed in the mediastinum. The chest was again irrigated. Instrument count and sponge count were correct times 2. Chest was closed in layers utilizing #7 wire on the sternum, #2 Vicryl on the linea alba and pectoralis fascia. Subcutaneous tissue was approximated with 3-0 Vicryl and skin approximated with 3-0 subcuticular Vicryl. Sterile dressings were applied. The patient tolerated the procedure well and transferred to the CV-ICU in stable condition. Post-procedure, transesophageal echo revealed no mitral regurgitation and a good solid repair. After the sliding valvuloplasty, the posterior leaflet was further repaired with a malachi chordae 24 mm in length to the posterior repair. TRANSINT:[id number] Voice Confirmation ID: [id number] DOCUMENT ID: [id number] KIERAN MAHARAJ MD at 1323 CC: [id number] DICTATION DATE: 10/14/17 1458 CONCENTRATOR OPERATOR: 10/14/17 1727 ADM IN [place] [id number] [place] [address]
--- NOTE | 2017-10-18 17:04 | NUR ---
0730-RECIEVED PER FLOW SHEET-AWAKE ALERT AMBULATING IN RM-NOTED MEDIASTINAL DRG NOT ADHERED-DRG CHANGED PER PROTOCOL-INCISION DRY AND INTACT-MEPILEX AG USED-PACER WIRE DRGS CHANGED-PACER WIRES INTACT AND SECURED-NOTED ATRIAL SENSE AND VENT PACING-ROOM AIR AND TOLERATING WELL- ASSISTING PT TO BATHROOM-STATES EASIER TO VOID 0830-AMBULATING IN HALLWAY WITH PHYSICAL THERAPY 1130 FAMILY AT BEDSIDE-NO CHANGES-SEE EMAR
--- NOTE | 2017-10-18 17:16 | NUR ---
1400-DB AND C DONE -STRONG AND PRODUCTIVE-DRG WELL ADHERED-FAMILY AT [facility] 1700-NO CHANGE-UP IN CHAIR- AT [facility]-ATRIAL SENSED VENT PACED
--- NOTE | 2017-10-18 19:00 | NUR ---
REPORT RECEIVED AND ASSESSMENT COMPLETED. SEE FLOWSHEET FOR FULL DETAILS. VSS AT THIS TIME. PT STILL HAS TPM SET AT DDD RATE OF 80, VMA AND AMA OF 10. SENS 0.8. VENT PACING AT THIS TIME. HAS HAD SOME PAINFUL URINATION DURING STAY THOUGH STATES HE FEELS MUCH BETTER AT THIS TIME AFTER PASSING WHAT APPEARED TO BE SOME DRIED BLOOD/CLOTS STATED BY PREVIOUS NURSE. WILL MONITOR THROUGHOUT SHIFT.
--- NOTE | 2017-10-18 21:00 | NUR ---
2100 MEDS GIVEN NO OTHER CHANGES IN STATUS AT THIS TIME. WILL CONTINUE TO MONITOR
--- NOTE | 2017-10-18 23:00 | NUR ---
REASSESSMENT COMPLETED SEE FLOWSHEET FOR FULL DETAILS. VSS. SCD'S REPOSITIONED FOR COMFORT AND PT MOVED TO CHAIR PER HIS REQUEST.
[2017-10-19] VITALS (30 sets, daily range): BP systolic 91–115; BP diastolic 35–76
--- NOTE | 2017-10-19 00:53 | NUR ---
NO CHANGES IN PT STATUS AT THIS TIME, PT IS RESTING IN ROOM. VSS. WILL CONTINUE TO MONITOR
--- NOTE | 2017-10-19 05:35 | NUR ---
I&O COLLECTED. PT TAKEN TO PA & LAT. NO OTHER CHANGES AT THIS TIME. VSS. WILL CONTINUE TO MONITOR
[2017-10-19 06:59] LABS: HEMATOCRIT 30.1 % (42.0-54.0); HEMOGLOBIN 9.9 g/dL (13.5-17.5); MCH 29.8 pg (26.0-34.0); MCHC 32.9 g/dL (31.0-37.0); MCV 90.7 fL (80.0-100.0); MEAN PLATELET VOLUME 9.7 fL (7.4-10.4); RBC 3.32 10x6/uL (4.20-6.10); RDW 13.8 % (11.5-14.5); WBC 11.1 10x3/uL (4.8-10.8)
[2017-10-19 07:21] LABS: ALKALINE PHOSPHATASE 51 U/L (46-116); ALT (SGPT) 48 U/L (10-68); BILIRUBIN - TOTAL 0.78 mg/dL (0.2-1.3); CALC OSMOLALITY 277 mosm/kg (275-300); CALCIUM 8.7 mg/dL (8.5-10.1); CARBON DIOXIDE 34.4 mmol/L (21.0-32.0); CHLORIDE - SERUM 100 mmol/L (98-107); GLUCOSE 121 mg/dL (74-106); POTASSIUM - SERUM 3.6 mmol/L (3.5-5.1); PROTEIN - SERUM 6.2 g/dL (6.4-8.2); SODIUM 137 mmol/L (136-145); UREA NITROGEN 22 mg/dL (7-18); eGFR NON AFRICAN AMERICAN 85 mL/min (90-120)
--- NOTE | 2017-10-19 08:15 | NUR ---
PHYSICAL THERAPY AT BEDSIDE. PT AMBULATED ON ROOM AIR. NO S/S OF RESP DISTRESS NOTED. AMBUALTED BACK TO CHAIR. CALL LIGHT WITHIN REACH. NO OTHER NEEDS AT THIS TIME.
--- NOTE | 2017-10-19 09:30 | NUR ---
DR. RITCHIE AT BEDSIDE. UPDATED ON PT'S STATUS.
--- NOTE | 2017-10-19 11:11 | NUR ---
DR. GARZA AT BEDSIDE. TPM CHANGED TO VVI 60. PT IN ATRIAL FLUTTER. RATE 115.
--- NOTE | 2017-10-19 13:20 | NUR ---
PT SITTING UP IN CHAIR. NO NEEDS AT THIS TIME. VSS. DOPAMINE GTT IS WEANED OFF. TOLERATING WELL.
--- NOTE | 2017-10-19 15:40 | NUR ---
PT HAD COMPLETE BATH AND LINEN CHANGE. TOLERATED WELL. MIDSTERNAL DRESSING FALLING OFF. REPLACED PER PROTOCOL. UPPER ABDOMEN DRESSINGS CHANGED PER MD ORDERS. ALL INCISIONS INTACT. NO S/S OF INFECTION NOTED. PT TOLERATED WELL. VSS AT THIS TIME. PT PLACED ON PORTABLE TELEMETRY. AMBULATING WITHOUT ASSISTANCE.
--- NOTE | 2017-10-19 17:29 | NUR ---
PT SITTING UP EATING SUPPER. NO NEEDS AT THIS TIME. PT'S AT BEDSIDE. CALL LIGHT WITHIN REACH.
--- NOTE | 2017-10-19 18:00 | NUR ---
PT AMBULATING HALLS WITHOUT ASSISTANCE. STEADY GAIT NOTED. NO S/S OF RESP DISTRESS NOTED.
--- NOTE | 2017-10-19 19:00 | NUR ---
REPORT RECEIVED AND ASSESSMENT COMPLETED. PT PACER SETTINGS HAVE CHANGED SINCE LAST CARE. NOW AT VVI 50. CURRENTLY IN A 2:1 FLUTTER AT A RATE OF 109. WILL MONITOR THROUGHOUT SHIFT.
--- NOTE | 2017-10-19 21:00 | NUR ---
2100 MEDS GIVEN. NO OTHER CHANGES IN STATUS AT THIS TIME. VSS. WILL CONTINUE TO MONITOR
--- NOTE | 2017-10-19 23:00 | NUR ---
REASSESSMENT COMPLETED. NO NEW CHANGES IN STATUS. VSS. WILL CONTINUE TO MONITOR
[2017-10-20] VITALS (23 sets, daily range): BP systolic 90–116; BP diastolic 59–75
--- NOTE | 2017-10-20 03:20 | NUR ---
REASSESSMENT COMPLETED. SEE FLOWSHEET FOR FULL DETAILS. VSS. WILL CONTINUE TO MONITOR
--- NOTE | 2017-10-20 05:30 | NUR ---
ATTEMPTED TO DRAW LABS FROM CENTRAL LINE. LINE WOULD NOT DRAW DESPITE ATTEMPTS TO FLUSH. WILL CALL LAB AND HAVE DRAWN BY PHLEBO. NO OTHER CHANGES AT THIS TIME. VSS. WILL CONTINUE TO MONITOR
[2017-10-20 06:55] LABS: HEMATOCRIT 29.8 % (42.0-54.0); HEMOGLOBIN 9.7 g/dL (13.5-17.5); MCH 29.8 pg (26.0-34.0); MCHC 32.6 g/dL (31.0-37.0); MCV 91.7 fL (80.0-100.0); MEAN PLATELET VOLUME 10.3 fL (7.4-10.4); RBC 3.25 10x6/uL (4.20-6.10); RDW 14.2 % (11.5-14.5)
[2017-10-20 07:16] LABS: ALBUMIN 2.8 g/dL (3.4-5.0); ANION GAP 8.7 mmol/L (8-16); BILIRUBIN - TOTAL 0.71 mg/dL (0.2-1.3); CALCIUM 8.7 mg/dL (8.5-10.1); CARBON DIOXIDE 33.2 mmol/L (21.0-32.0); CREATININE - SERUM 1.5 mg/dL (0.6-1.3); POTASSIUM - SERUM 3.9 mmol/L (3.5-5.1); PROTEIN - SERUM 5.9 g/dL (6.4-8.2)
--- NOTE | 2017-10-20 07:20 | NUR ---
PT AMBULATED APPROX 750 FT WITHOUT DIFFICULTY. STEADY GAIT NOTED. NO S/S OF RESP DISTRESS NOTED.
--- NOTE | 2017-10-20 07:45 | NUR ---
PT AMBULATING AROUND UNIT WITHOUT ASSISTANCE. PORTABLE TELEMETRY ON. NO S/S OF DISTRESS NOTED.
--- NOTE | 2017-10-20 09:15 | NUR ---
PT AMBULATED APPROX 750 FT WITHOUT DIFFICULTY. NO S/S OF RESP DISTRESS NOTED.
--- NOTE | 2017-10-20 09:53 | NUR ---
Nutrition Follow Up: Pt stated that his appetite is improving but remains poor. Encouraged pt to make staff aware of any food preferences and assured him that they would be honored if possible. Pt is eating 50% meal avg on a regular diet. Wt loss noted. +BM 10/19/17. Labs reviewed. Meds noted including Lasix. Rec continue current diet. Will honor food preferences. RD following.
--- NOTE | 2017-10-20 11:00 | NUR ---
PT AMBULATED APPROX 750FT WITHOUT DIFFICULTY.
--- NOTE | 2017-10-20 12:45 | NUR ---
FLUSHED RIGHT DLSC. FLUSHES WITHOUT DIFFICULTY BOTH PORTS, BUT UNABLE TO GET BLOOD RETURN FROM EITHER PORT.
--- NOTE | 2017-10-20 15:27 | NUR ---
PT RESTING IN RECLINER WITH EYES CLOSED. RESPIRATIONS EVEN AND UNALBORED. CALL LIGHT WITHIN REACH.
--- NOTE | 2017-10-20 19:15 | NUR ---
REC'D TO CARE, CYBER SYSTEMS ADMINISTRATOR PER FLOWSHEET. PT UP IN CHAIR, AT BS. VSS. CM - ST, [employer] TPM VVI 60 - SENSING, WIRES SECURED TO SUBSTERNAL DSG. URNIAL AT BS, REPORTS URGENCY AND SPASMS AT TIMES. DENIES PAIN AT REST. ALARMS ON AND C/L IN REACH.
--- NOTE | 2017-10-20 20:30 | NUR ---
ADMIN PO MEDS AND PRN PERCOCET PER MD ORDERS. UP IN CHAIR, AT BS.
--- NOTE | 2017-10-20 21:47 | NUR ---
ADMIN PRN TORADOL PER PT REQUEST FOR BLADDER DISCOMFORT.
--- NOTE | 2017-10-20 23:00 | NUR ---
PT C/O R CHEST/INCISIONAL PAIN. PT UP IN RECLINER, CT SITE C/D/I. WILL ADMIN PRN MED PER ORDER. PT REPORTS "FEELS BETTER SITTING UP ". ALARMS ON AND C/L IN REACH.
--- NOTE | 2017-10-20 23:22 | NUR ---
REASSESSMENT PER FLOWSHEET, NO ACUTE CHANGES. VSS. REMAINS AT BS. NO SIGN OF DISTRESS. ALARMS ON AND C/L IN REACH.
[2017-10-21] VITALS (16 sets, daily range): BP systolic 93–121; BP diastolic 62–77
--- NOTE | 2017-10-21 01:00 | NUR ---
RESTING WITH EYES CLOSED, VSS. NO SIGN OF DISTRESS.
--- NOTE | 2017-10-21 03:08 | NUR ---
ADMIN PRN PERCOCET - SEE REASSESSMENT. NO ACUTE CHANGES. VSS. AT BS.
--- NOTE | 2017-10-21 04:50 | NUR ---
TO RADIOLOGY VIA W/C. THEN BACK TO ROOM AND UP IN CHAIR.
--- NOTE | 2017-10-21 06:10 | NUR ---
PT UP AND AMBULATING WITH .
[2017-10-21 06:13] LABS: HEMATOCRIT 27.4 % (42.0-54.0); HEMOGLOBIN 8.8 g/dL (13.5-17.5); MCH 29.6 pg (26.0-34.0); MCHC 32.1 g/dL (31.0-37.0); MCV 92.3 fL (80.0-100.0); MEAN PLATELET VOLUME 10.1 fL (7.4-10.4); RBC 2.97 10x6/uL (4.20-6.10); RDW 14.7 % (11.5-14.5); WBC 8.7 10x3/uL (4.8-10.8)
[2017-10-21 06:32] LABS: ANION GAP 9.8 mmol/L (8-16); CALCIUM 8.8 mg/dL (8.5-10.1); CARBON DIOXIDE 30.3 mmol/L (21.0-32.0); CREATININE - SERUM 1.2 mg/dL (0.6-1.3); POTASSIUM - SERUM 4.1 mmol/L (3.5-5.1)
--- NOTE | 2017-10-21 07:15 | NUR ---
REPORT RECEIVED. ASSUMED CARE OF PATIENT. PT NOW UP WALKING THE UNIT. NO DISTRESS
--- NOTE | 2017-10-21 08:00 | NUR ---
ORAL CARE DONE WITH PERIDEX
[2017-10-21] MEDS ORDERED: ASPIRIN81 MG PO (08:37)
[2017-10-21] MEDS ORDERED: CORDARONE200 MG PO (08:37)
[2017-10-21] MEDS ORDERED: HEMOCYTE PLUS C1 CAP PO (08:37)
[2017-10-21] MEDS ORDERED: LASIX40 MG PO (08:39)
[2017-10-21] MEDS ORDERED: K-DUR20 MEQ PO (08:39)
[2017-10-21] MEDS ORDERED: PHENAZOPYRIDIN100 MG PO (08:40)
[2017-10-21] MEDS ORDERED: MIRALAX17 GM PO (08:42)
[2017-10-21] MEDS ORDERED: PERCOCET 10/3251 TA1 PO (08:45)
--- NOTE | 2017-10-21 08:45 | NUR ---
DR GARZA HAS BEEN IN TO SEE PATIENT. POSSIBLE DC LATER TODAY. PT WAS IN FLUTTER ON MONITOR. TEMP PACER ADJUSTED AND PT NOW SR. WILL CONTINUE TO MONITOR. MORNING MEDICATIONS PROVIDED, ALONG WITH REQUESTED PAIN MEDICATION. PT HAS EATEN BREAKFAST 90%. AT BEDSIDE.
--- NOTE | 2017-10-21 11:50 | NUR ---
LUNCH TRAY WAS PROVIDED TO PATIENT. HE DID NOT WANT WHAT WAS ON IT. JANETTE SANDWICH FROM [employer].
--- NOTE | 2017-10-21 15:46 | TEE ---
PATIENT:GABRIEL MAYO MEDICAL RECORD: [id number] LOCATION:[place] [address] AGE OF PATIENT: 47 ADMISSION DATE: 10/14/17 SEX: M REFERRING PHYSICIAN: INTERPRETING PHYSICIAN: FRANCIS RAYMUNDO MD TRANSESOPHAGEAL ECHOCARDIOGRAM ALEX CHARGE Y INDICATIONS: MVR PREMEDICATIONS: PATIENT'S RESPONSE PROCEDURE DOPPLER MEASUREMENTS: LVIT LA PA RA LVOT RVOT Asc. Ao AV Gradient Peak AV Mean AV Area MV Gradient Peak MV Mean MV Area INTERPRETATION: LVd: 6.2 cm LVs: 4.4 cm Doppler: 2-D: COLOR FLOW DOPPLER NORMAL SALINE STUDY: MISCELLANOUS: DIAGNOSIS: PLAN: Wire Twister:3 Dr. Soni Utilization Review Coordinator: Rachelle ALAS COMMENTS: DATE OF SERVICE: 10/14/2017 PROCEDURE: Transesophageal echo evaluation of valvular structures during mitral valve replacement surgery. FINDINGS: 1. Left ventricular chamber size is within normal limits. Left ventricular systolic function is normal. Overall ejection fraction estimated at 60%. 2. Left atrium, right atrium, and right ventricular chamber sizes are mildly TRANSESOPHAGEAL ECHOCARDIOGRAM REPORT [id number] GABRIEL MAYO dilated. 3. Valvular structures: Mitral valve demonstrates severe mitral regurgitation. The remaining valvular structures have normal structure and motion. Doppler interrogation elsewise reveals no significant valvular insufficiency or stenosis. 4. No evidence of pericardial effusion or left ventricular thrombus. TRANSINT:[id number] Voice Confirmation ID: [id number] DOCUMENT ID: [id number] at 1546 CC: [id number] DICTATION DATE: 10/14/17 1042 GROUP HOME MANAGER: 10/15/17 0135 ADM IN [place] [id number] [place] [address]
--- NOTE | 2017-10-21 16:25 | NUR ---
DISCHARGE TEACHING PROVIDED TO PATIENT AND . DISCHARGE INSTRUCTIONS GIVEN TO THEM. WRITTEN PRESCRIPTION PROVIDED FOR PERCOCET, ALL OTHER NEW MEDICATIONS E-SCRIBED TO 3Nod.
[2017-11-12 09:14] LABS: FUNGUS MYCOLOGY CULTURE Final report (())
[2017-12-04 11:20] LABS: ACID FAST CULTURE Negative (()); ACID FAST SMEAR Negative (())
== END 2017-10-21 16:47 | disposition home or self-care (01) | DRG 219 ==
LOC: D.SDCHOLD 08:30 → D.CVICU 10-14 05:00 → D.SDCHOLD 10-14 05:00 → D.CVICU 10-14 12:15
PROVIDERS: ADMIT Internal Medicine Cardiovascular Disease
PROC: 02BG0ZZ Excision of Mitral Valve, Open Approach (ICD-10-PCS; 2017-10-14)
PROC: B245ZZ4 Ultrasonography of Left Heart, Transesophageal (ICD-10-PCS; 2017-10-14)
PROC: 02UG0JZ Supplement Mitral Valve with Synthetic Substitute, Open Approach (ICD-10-PCS; principal; 2017-10-14 07:30)
DX: I08.3 Combined rheumatic disorders of mitral, aortic and tricuspid valves (principal); B39.2 Pulmonary histoplasmosis capsulati, unspecified; J96.90 Respiratory failure, unspecified, unspecified whether with hypoxia or hypercapnia; I50.30 Unspecified diastolic (congestive) heart failure; D62 Acute posthemorrhagic anemia; I48.92 Unspecified atrial flutter; J98.11 Atelectasis; I33.0 Acute and subacute infective endocarditis; I11.0 Hypertensive heart disease with heart failure; K44.9 Diaphragmatic hernia without obstruction or gangrene; D69.6 Thrombocytopenia, unspecified

== ENCOUNTER → 2017-11-05 08:41 | Outpatient (CLI) | payer OTHER ==
[2017-10-16 12:45] VITALS: BMI 31.9
[~2017-11-05 08:41] MED LIST changes: +ASPIRIN81 MG PO; +CORDARONE200 MG PO; +HEMOCYTE PLUS C1 CAP PO; +K-DUR20 MEQ PO; +MIRALAX17 GM PO; +PERCOCET 10/3251 TA1 PO; +PHENAZOPYRIDIN100 MG PO
[2017-11-05 09:30] LABS: HEMATOCRIT 39.5 % (42.0-54.0); HEMOGLOBIN 12.9 g/dL (13.5-17.5); MCH 28.7 pg (26.0-34.0); MCHC 32.7 g/dL (31.0-37.0); MEAN PLATELET VOLUME 9.2 fL (7.4-10.4); RBC 4.49 10x6/uL (4.20-6.10); RDW 13.5 % (11.5-14.5); WBC 8.1 10x3/uL (4.8-10.8)
[2017-11-05 09:44] LABS: ALBUMIN 3.4 g/dL (3.4-5.0); ANION GAP 12.5 mmol/L (8-16); BILIRUBIN - TOTAL 0.34 mg/dL (0.2-1.3); CALCIUM 9.3 mg/dL (8.5-10.1); CARBON DIOXIDE 28.1 mmol/L (21.0-32.0); CREATININE - SERUM 1.2 mg/dL (0.6-1.3); POTASSIUM - SERUM 3.6 mmol/L (3.5-5.1); PROTEIN - SERUM 7.2 g/dL (6.4-8.2)
== END | disposition home or self-care (01) ==
LOC: D.LAB 08:00 → D.RAD 08:15 → D.LAB 08:41 → D.RAD 11-20 10:00
PROVIDERS: Internal Medicine Cardiovascular Disease
DX: J91.8 Pleural effusion in other conditions classified elsewhere (principal); D64.9 Anemia, unspecified

== ENCOUNTER → 2017-11-12 13:13 | Outpatient (CLI) | payer OTHER ==
[2017-10-16 12:45] VITALS: BMI 31.9
[2017-11-14 16:09] LABS: HISTOPLASMA GAL MANNAN AG SER <0.5 (<0.5 ng/mL)
== END | disposition home or self-care (01) ==
LOC: D.LAB 13:13
PROVIDERS: Student in an Organized Health Care Education/Training Program
DX: B39.9 Histoplasmosis, unspecified (principal)

== ENCOUNTER → 2017-11-30 10:24 | Outpatient (CLI) | payer OTHER ==
[2017-10-16 12:45] VITALS: BMI 31.9
== END | disposition home or self-care (01) ==
LOC: D.LAB 10:24
DX: I05.9 Rheumatic mitral valve disease, unspecified (principal)

== ENCOUNTER → 2018-02-09 08:30 | Outpatient (CLI) | payer OTHER ==
[2017-10-16 12:45] VITALS: BMI 31.9
--- NOTE | ~2018-02-09 | EC ---
PATIENT:GABRIEL MAYO DATE OF SERVICE: 02/09/18 SEX: M MEDICAL RECORD: [id number] DATE OF : [birth year] [facility] AGE OF PATIENT: 47 ADMISSION DATE: 02/09/18 REFERRING PHYSICIAN: INTERPRETING PHYSICIAN: FRANCIS DOMINIQUE MD ECHOCARDIOGRAM REPORT ECHO CHARGES 4 ECHO COMPLETE Date: 02/09 CLINICAL DIAGNOSIS: MITRAL REGURG POST MITRAL VALVE REPAIR OCT 11 ECHOCARDIOGRAPHIC MEASUREMENTS (adult normal given) AC root (d.<3.7cm) 4.1 cm LV Septum d (<1.2 cm> 1.3 cm Valve Excursion 2.0 cm LV Septum (systole) 1.5 cm Left Atria (s.<4.0cm> 3.7 cm LVPW d(<1.2cm) 1.5 cm RV (d.<2.3cm) 4.6 cm LVPW (sytole) 1.8 cm LV diastole(<5.6CM) 6.0 cm MV E-F(>70mm/sec) cm LV systole 4.7 cm LVOT Diameter 1.8 cm MV exc.(>10mm) 1.7 cm Est.ejection fraction (50-75%) % DOPPLER: LVIT cm/sec A 143 cm/sec E 133 cm/sec LA cm/sec RVSP 19 mmHg LVOT 95 cm/sec AOP1/2T m/s Asc. Ao 114 cm/sec RVOT 82 cm/sec RA cm/sec PA 128 cm/sec AV Gradient Peak 5.17 mmHg AV Mean 2.81 mmHg AV Area 2.4 cm MV Gradient Peak 10.43mmHg MV Mean 4.78 mmHg MV Area cm COMMENTS: Prototype Engineer: [place] BARRIENTOS Doctor Of Nursing Practice: 1 Dr. Dominique TAPE# PACS Pericardial Effusion N DATE OF SERVICE: PROCEDURE: Echocardiogram. FINDINGS: 1. Left ventricular chamber size is within normal limits. Left ventricular function is normal. Overall ejection fraction estimated at 55%. 2. Left atrium was within normal limits at 3.7 cm. Right atrium and right ventricle chamber sizes are within normal limits. 3. Valvular structures have normal structure and motion. ECHOCARDIOGRAM REPORT [id number] GABRIEL MAYO 4. Doppler interrogation reveals no valvular insufficiency or stenosis. 5. No evidence of pericardial effusion or left ventricular thrombus. Pulmonary systolic pressure is estimated at 19 mmHg. TRANSINT:[id number] Voice Confirmation ID: [id number] DOCUMENT ID: [id number] FRANCIS DOMINIQUE MD at 0956 CC: [id number] DICTATION DATE: 02/09/18 1007 RELAY MAN: 02/09/18 1355 DEP CLI 02/09/18 [place] [id number]
== END | disposition home or self-care (01) ==
LOC: D.ECHO 08:30
DX: R05 Cough (principal); I38 Endocarditis, valve unspecified; I34.0 Nonrheumatic mitral (valve) insufficiency

== ENCOUNTER → 2018-02-18 09:20 | Outpatient (CLI) | payer OTHER ==
[2017-10-16 12:45] VITALS: BMI 31.9
== END | disposition home or self-care (01) ==
LOC: D.RT 09:20
DX: J45.909 Unspecified asthma, uncomplicated (principal)

== ENCOUNTER → 2018-10-14 08:44 | Outpatient (CLI) | payer OTHER ==
[2017-10-16 12:45] VITALS: BMI 31.9
--- NOTE | ~2018-10-14 | EC ---
PATIENT:GABRIEL MAYO DATE OF SERVICE: 10/14/18 SEX: M MEDICAL RECORD: [id number] DATE OF : 68 [facility] AGE OF PATIENT: 48 ADMISSION DATE: 10/14/18 REFERRING PHYSICIAN: INTERPRETING PHYSICIAN: FRANCIS DOMINIQUE MD ECHOCARDIOGRAM REPORT ECHO CHARGES 4 ECHO COMPLETE Date: 10/14/18 CLINICAL DIAGNOSIS: HX OF MITRAL VALVE REPAIR ECHOCARDIOGRAPHIC MEASUREMENTS (adult normal given) AC root (d.<3.7cm) 3.7 cm LV Septum d (<1.2 cm> 1.3 cm Valve Excursion 1.8 cm LV Septum (systole) 1.6 cm Left Atria (s.<4.0cm> 4.0 cm LVPW d(<1.2cm) 1.2 cm RV (d.<2.3cm) 4.6 cm LVPW (sytole) 1.9 cm LV diastole(<5.6CM) 6.3 cm MV E-F(>70mm/sec) cm LV systole 4.8 cm LVOT Diameter 2.7 cm MV exc.(>10mm) cm Est.ejection fraction (50-75%) % DOPPLER: LVIT cm/sec A 131 cm/sec E 108 cm/sec LA cm/sec RVSP 30 mmHg LVOT 90 cm/sec AOP1/2T m/s Asc. Ao 106 cm/sec RVOT 54 cm/sec RA cm/sec PA 114 cm/sec AV Gradient Peak 4.49 mmHg AV Mean 2.23 mmHg AV Area 5.7 cm MV Gradient Peak 8.22 mmHg MV Mean 3.21 mmHg MV Area cm COMMENTS: Cloud Systems Administrator: [place] BARRIENTOS Spoke Maker: 1 Dr. Dominique TAPE# PACS Pericardial Effusion N DATE OF SERVICE: 10/14/2018 FINDINGS: 1. Left ventricular chamber size is mildly dilated. Left ventricular systolic function is normal. Overall ejection fraction is estimated at 50%. 2. Left atrium is upper limits of normal at 4.0 cm. Right atrium and right ventricle chamber sizes are mildly dilated. 3. Valvular structures have normal structure and motion. The patient has a history of mitral valve repair. This valve appears structurally normal at this time. ECHOCARDIOGRAM REPORT [id number] GABRIEL MAYO 4. Doppler interrogation only reveals mild mitral regurgitation and trace tricuspid regurgitation. No other valvular insufficiency or stenosis. Pulmonary systolic pressure is estimated at 30 mmHg. 5. No evidence of pericardial effusion or left ventricular thrombus. TRANSINT:[id number] Voice Confirmation ID: [id number] DOCUMENT ID: [id number] FRANCIS DOMINIQUE MD CC: [id number] DICTATION DATE: 10/15/18 1244 LOOM OVERHAULER: 10/15/18 1618 DEP CLI 10/14/18 [place] [id number] [place] [id number]
== END | disposition home or self-care (01) ==
LOC: D.ECHO 08:44
DX: I34.0 Nonrheumatic mitral (valve) insufficiency (principal)

== ENCOUNTER 2019-08-04 09:53 | Outpatient (CLI) | payer OTHER ==
[~2019-08-04] VITALS: Ht 177.8 cm; Wt 95.6 kg
[2019-08-04 11:14] VITALS: Ht 177.8 cm; Wt 95.6 kg
--- NOTE | 2019-08-04 14:00 | NUR ---
ALL MEDS GIVEN PER DR ORDERS FOR PRE DENTAL PROCEDURE. IV REMOVED WITH CATHALON INTACT. AMBULATED TO BATHROOM. ALL DC INSTRUCTIONS GIVEN TO PT AND . DC'D TO GO TO DENTAL APPOINTMENT. ADVISED TO CALL OR COME BACK IF ANY PROBLEMS.
== END 2019-08-04 13:22 | disposition home or self-care (01) ==
LOC: D.OPS 09:53
PROVIDERS: ATTEND Internal Medicine Cardiovascular Disease
DX: Z95.2 Presence of prosthetic heart valve (principal)

== ENCOUNTER → 2020-04-04 13:49 | Outpatient (CLI) | payer OTHER ==
[2019-08-04 11:14] VITALS: BMI 30.2
== END | disposition home or self-care (01) ==
LOC: D.HCCECHO 13:49
PROVIDERS: ATTEND Internal Medicine Cardiovascular Disease
DX: R00.2 Palpitations (principal)

== ENCOUNTER → 2021-01-24 11:13 | Outpatient (CLI) | payer OTHER ==
[2019-08-04 11:14] VITALS: BMI 30.2
== END | disposition home or self-care (01) ==
LOC: D.HCCECHO 11:13
PROVIDERS: ATTEND Internal Medicine Cardiovascular Disease
DX: Z98.890 Other specified postprocedural states (principal)